=== PATIENT | female | born 1940 | race Caucasian/White ===

== ENCOUNTER 2020-06-26 09:11 | Outpatient (REF) | payer MEDICARE, SELFPAY ==
[2020-06-26 09:50] LABS: MANUAL DIFF FLAG NO
[2020-06-26 10:01] LABS: Basophils Percent Auto 0.7 % (0-2); Eosinophils Absolute Auto 0.2 X10*3/uL (0.0-0.4); Eosinophils Percent Auto 4.2 % (0-4); Hematocrit 36.9 % (37-47); Hemoglobin 11.8 g/dl (12.0-16.0); Imm Gran Abs Auto 0.01 X10*3/uL (0.00-0.03); Imm Gran Pct Auto 0.2 % (0.0-0.4); Lymphocytes Absolute Auto 0.8 X10*3/uL (1.2-4.9); Lymphocytes Percent Auto 18.8 % (20-40); Mean Corpuscular Hemoglobin 29.3 pg (27.0-33.0); Mean Corpuscular Volume 91.6 fL (80-98); Mean Platelet Volume 11.6 fL (9.4-12.3); Monocytes Absolute Auto 0.4 X10*3/uL (0.1-1.2); Monocytes Percent Auto 9.6 % (2-11); Neutrophils Absolute Auto 2.8 X10*3/uL (2.0-8.3); Neutrophils Percent Auto 66.5 % (45-73); Platelet Count 208 X10*3/uL (160-400); Red Blood Count 4.03 X10*6/uL (4.20-5.50); Red Cell Distribution Width 13.8 % (11.0-16.0); White Blood Count 4.3 X10*3/uL (4.8-10.8)
[2020-06-26 10:29] LABS: Alanine Aminotransferase 25 U/L (0-31); Alkaline Phosphatase 82 U/L (39-117); Anion Gap 10 (12-20); Aspartate Amino Transferase 30 U/L (5-31); Bilirubin Total 0.6 mg/dL (0.0-1.0); Blood Urea Nitrogen 20 mg/dL (9-16); Calcium 9.2 mg/dL (8.4-10.2); Carbon Dioxide 28 mmol/L (22-29); Chloride 103 mmol/L (96-108); Cholesterol 178 mg/dL; Estimated Glomerular Filt Rate > 60; Glucose Random 96 mg/dL (60-115); HDL Cholesterol 74 mg/dL; LDL Cholesterol Calculated 94 mg/dl; Potassium 4.4 mmol/l (3.3-5.1); Sodium 137 mmol/L (135-145); Total Protein 7.4 g/dL (6.5-8.0); Triglycerides 52 mg/dL
[2020-06-26 10:52] LABS: Ferritin 74 ng/mL (10-250)
[2020-06-26 11:09] LABS: Vitamin B12 1946 pg/mL (200-900)
== END 2020-06-26 09:12 | disposition home or self-care (01) ==
LOC: HO.LAB 09:11
PROVIDERS: PCP Internal Medicine; Visit Provider Internal Medicine
DX: E87.1 Hypo-osmolality and hyponatremia (principal); I10 Essential (primary) hypertension; M54.2 Cervicalgia
CPT/HCPCS: 36415; 80053; 80061; 82607; 82728; 85025

== ENCOUNTER 2020-08-19 10:00 | Outpatient (RCR) | payer MEDICARE, SELFPAY | END 2020-10-16 11:52 | disposition other institution (70) | LOC: HO.PT 10:00 | PROVIDERS: PCP Internal Medicine; Visit Provider Internal Medicine | DX: M25.512 Pain in left shoulder (principal) | CPT/HCPCS: 97110; 97140 ==

== ENCOUNTER → 2020-11-07 09:23 | Outpatient (BNV) | payer MEDICARE, SELFPAY | PROVIDERS: PCP Internal Medicine; Visit Provider Internal Medicine Medical Oncology | DX: D50.9 Iron deficiency anemia, unspecified (principal); Z86.711 Personal history of pulmonary embolism; Z79.82 Long term (current) use of aspirin | CPT/HCPCS: 99213; 99214 ==

== ENCOUNTER 2020-12-11 11:36 | Outpatient (REF) | payer MEDICARE, SELFPAY ==
[2020-12-11 12:34] LABS: D Dimer 1861 NG/ML
[2020-12-11 12:54] LABS: Alanine Aminotransferase 23 U/L (0-31); Alkaline Phosphatase 72 U/L (39-117); Anion Gap 14 (12-20); Aspartate Amino Transferase 33 U/L (5-31); Bilirubin Total 0.5 mg/dL (0.0-1.0); Blood Urea Nitrogen 19 mg/dL (9-16); Calcium 9.5 mg/dL (8.4-10.2); Carbon Dioxide 26 mmol/L (22-29); Chloride 101 mmol/L (96-108); Estimated Glomerular Filt Rate > 60; Glucose Random 95 mg/dL (60-115); Potassium 4.3 mmol/L (3.3-5.1); Sodium 137 mmol/L (135-145); Total Protein 7.2 g/dL (6.5-8.0)
== END 2020-12-11 11:37 | disposition home or self-care (01) ==
LOC: HO.LAB 11:36
PROVIDERS: Internal Medicine Medical Oncology; PCP Internal Medicine; Visit Provider Internal Medicine
DX: I26.99 Other pulmonary embolism without acute cor pulmonale (principal); E87.1 Hypo-osmolality and hyponatremia; I10 Essential (primary) hypertension
CPT/HCPCS: 36415; 80053; 85379

== ENCOUNTER 2021-01-27 14:31 | Outpatient (REF) | payer MEDICARE, SELFPAY ==
[2021-01-27 15:44] LABS: D Dimer 1565 NG/ML
== END 2021-01-27 14:32 | disposition home or self-care (01) ==
LOC: HO.LAB 14:31
PROVIDERS: PCP Internal Medicine; Visit Provider Internal Medicine Medical Oncology
DX: I26.99 Other pulmonary embolism without acute cor pulmonale (principal)
CPT/HCPCS: 36415; 85379

== ENCOUNTER 2021-04-30 11:04 | Outpatient (REF) | payer MEDICARE, SELFPAY ==
[2021-04-30 16:24] LABS: Anion Gap 12 (12-20); Blood Urea Nitrogen 20 mg/dL (9-16); Calcium 9.6 mg/dL (8.4-10.2); Carbon Dioxide 26 mmol/L (22-29); Chloride 105 mmol/L (96-108); Estimated Glomerular Filt Rate > 60; Phosphorus 3.3 mg/dL (2.7-4.5); Potassium 4.2 mmol/L (3.3-5.1); Sodium 139 mmol/L (135-145); Uric Acid 4.2 mg/dL (2.4-5.7)
[2021-04-30 16:45] LABS: TSH reflex Free T4 1.24 uIU/mL (0.32-4.0)
[2021-04-30 17:45] LABS: Renal w Reflex Lab Use Only Order verified
== END 2021-04-30 11:05 | disposition home or self-care (01) ==
LOC: HO.LAB 11:04
PROVIDERS: PCP Internal Medicine; Visit Provider Internal Medicine Nephrology
DX: I10 Essential (primary) hypertension (principal); E87.1 Hypo-osmolality and hyponatremia
CPT/HCPCS: 36415; 80051; 82310; 82533; 82565; 84100; 84443; 84520; 84550

== ENCOUNTER 2021-05-05 13:06 | Outpatient (REF) | payer MEDICARE, SELFPAY ==
[2021-05-05 14:27] LABS: Creatinine Urine 53.68 mg/dL
[2021-05-05 14:32] LABS: Uric Acid Urine Random 37.2 mg/dL
[2021-05-05 14:46] LABS: Osmolality Urine 596 mosm/kg (373-1093)
== END 2021-05-05 13:07 | disposition home or self-care (01) ==
LOC: HO.LNP 13:06
PROVIDERS: Visit Provider Internal Medicine Nephrology
DX: E87.1 Hypo-osmolality and hyponatremia (principal); I10 Essential (primary) hypertension; E27.40 Unspecified adrenocortical insufficiency; E78.5 Hyperlipidemia, unspecified; E03.9 Hypothyroidism, unspecified; N28.9 Disorder of kidney and ureter, unspecified
CPT/HCPCS: 83935; 84300; 84560

== ENCOUNTER 2021-06-24 10:40 | Outpatient (REF) | payer MEDICARE, SELFPAY ==
[2021-06-24 10:53] LABS: MANUAL DIFF FLAG NO
[2021-06-24 11:03] LABS: Basophils Percent Auto 0.7 % (0-2); Eosinophils Absolute Auto 0.2 X10*3/uL (0.0-0.4); Eosinophils Percent Auto 3.6 % (0-4); Hematocrit 37.3 % (37-47); Imm Gran Abs Auto 0.01 X10*3/uL (0.00-0.03); Imm Gran Pct Auto 0.2 % (0.0-0.4); Lymphocytes Absolute Auto 0.8 X10*3/uL (1.2-4.9); Lymphocytes Percent Auto 17.6 % (20-40); Mean Corpuscular HGB Conc 32.2 g/dl (31.0-35.0); Mean Corpuscular Hemoglobin 30.1 pg (27.0-33.0); Mean Corpuscular Volume 93.5 fL (80-98); Mean Platelet Volume 11.4 fL (9.4-12.3); Monocytes Absolute Auto 0.5 X10*3/uL (0.1-1.2); Monocytes Percent Auto 10.4 % (2-11); Neutrophils Percent Auto 67.5 % (45-73); Platelet Count 222 X10*3/uL (160-400); Red Blood Count 3.99 X10*6/uL (4.20-5.50); Red Cell Distribution Width 12.9 % (11.0-16.0); White Blood Count 4.5 X10*3/uL (4.8-10.8)
[2021-06-24 11:38] LABS: Alanine Aminotransferase 32 U/L (0-31); Alkaline Phosphatase 73 U/L (39-117); Anion Gap 11 (12-20); Aspartate Amino Transferase 35 U/L (5-31); Bilirubin Total 0.7 mg/dL (0.0-1.0); Blood Urea Nitrogen 16 mg/dL (9-16); Calcium 9.2 mg/dL (8.4-10.2); Carbon Dioxide 27 mmol/L (22-29); Chloride 102 mmol/L (96-108); Cholesterol 185 mg/dL; Estimated Glomerular Filt Rate > 60; Glucose Random 108 mg/dL (60-115); HDL Cholesterol 74 mg/dL; LDL Cholesterol Calculated 100 mg/dl; Potassium 4.8 mmol/L (3.3-5.1); Sodium 135 mmol/L (135-145); Total Protein 6.9 g/dL (6.5-8.0); Triglycerides 58 mg/dL
[2021-06-24 11:45] LABS: Thyroid Stimulating Hormone 1.33 uIU/mL (0.32-4.0)
== END 2021-06-24 10:41 | disposition home or self-care (01) ==
LOC: HO.LAB 10:40
PROVIDERS: PCP Internal Medicine; Visit Provider Internal Medicine
DX: I10 Essential (primary) hypertension (principal); Z20.89 Contact with and (suspected) exposure to other communicable diseases
CPT/HCPCS: 36415; 80053; 80061; 84443; 85025

== ENCOUNTER 2021-07-16 12:03 | Outpatient (REF) | payer MEDICARE, SELFPAY ==
[2021-07-16 13:28] LABS: Alanine Aminotransferase 32 U/L (0-31); Albumin Level 3.9 g/dL (3.5-5.0); Alkaline Phosphatase 76 U/L (39-117); Anion Gap 11 (12-20); Aspartate Amino Transferase 42 U/L (5-31); Bilirubin Total 0.7 mg/dL (0.0-1.0); Blood Urea Nitrogen 23 mg/dL (9-16); Calcium 9.4 mg/dL (8.4-10.2); Carbon Dioxide 27 mmol/L (22-29); Chloride 100 mmol/L (96-108); Estimated Glomerular Filt Rate > 60; Glucose Random 95 mg/dL (60-115); Potassium 4.5 mmol/L (3.3-5.1); Sodium 133 mmol/L (135-145); Total Protein 6.9 g/dL (6.5-8.0)
== END 2021-07-16 12:04 | disposition home or self-care (01) ==
LOC: HO.LAB 12:03
PROVIDERS: PCP Internal Medicine; Visit Provider Internal Medicine
DX: E87.1 Hypo-osmolality and hyponatremia (principal); I10 Essential (primary) hypertension; R79.1 Abnormal coagulation profile
CPT/HCPCS: 36415; 80053

== ENCOUNTER 2021-11-11 09:00 | Outpatient (RCR) | payer MEDICARE, SELFPAY | END 2021-11-14 08:36 | disposition home or self-care (01) | LOC: HO.PT 09:00 | PROVIDERS: PCP Internal Medicine; Visit Provider Internal Medicine | DX: M25.512 Pain in left shoulder (principal) | CPT/HCPCS: 97110; 97140; 97162; 97535 ==

== ENCOUNTER 2022-01-06 08:53 | Outpatient (REF) | payer MEDICARE, SELFPAY ==
[2022-01-06 10:50] LABS: Alanine Aminotransferase 25 U/L (0-31); Albumin Level 3.7 g/dL (3.5-5.0); Alkaline Phosphatase 74 U/L (39-117); Anion Gap 9 (12-20); Aspartate Amino Transferase 34 U/L (5-31); Bilirubin Total 0.7 mg/dL (0.0-1.0); Blood Urea Nitrogen 20 mg/dL (9-16); Calcium 10.1 mg/dL (8.4-10.2); Carbon Dioxide 29 mmol/L (22-29); Chloride 104 mmol/L (96-108); Estimated Glomerular Filt Rate > 60; Glucose Random 96 mg/dL (60-115); Potassium 4.8 mmol/L (3.3-5.1); Sodium 137 mmol/L (135-145); Total Protein 6.6 g/dL (6.5-8.0)
== END 2022-01-06 08:54 | disposition home or self-care (01) ==
LOC: HO.LAB 08:53
PROVIDERS: PCP Internal Medicine; Visit Provider Internal Medicine
DX: I10 Essential (primary) hypertension (principal); I83.899 Varicose veins of unspecified lower extremity with other complications; L03.116 Cellulitis of left lower limb
CPT/HCPCS: 36415; 80053

== ENCOUNTER 2022-07-06 07:58 | Outpatient (REF) | payer MEDICARE, SELFPAY ==
[2022-07-06 08:10] LABS: MANUAL DIFF FLAG NO
[2022-07-06 08:56] LABS: Basophils Percent Auto 0.7 % (0-2); Eosinophils Absolute Auto 0.1 X10*3/uL (0.0-0.4); Eosinophils Percent Auto 1.1 % (0-4); Imm Gran Abs Auto 0.03 X10*3/uL (0.00-0.03); Imm Gran Pct Auto 0.5 % (0.0-0.4); Lymphocytes Absolute Auto 0.8 X10*3/uL (1.2-4.9); Lymphocytes Percent Auto 14.4 % (20-40); Mean Corpuscular HGB Conc 32.4 g/dl (31.0-35.0); Mean Corpuscular Hemoglobin 29.6 pg (27.0-33.0); Mean Corpuscular Volume 91.1 fL (80.0-98.0); Mean Platelet Volume 10.4 fL (9.4-12.3); Monocytes Absolute Auto 0.6 X10*3/uL (0.1-1.2); Monocytes Percent Auto 10.4 % (2-11); Neutrophils Absolute Auto 4.1 x10*3/uL (2.0-8.3); Neutrophils Percent Auto 72.9 % (45-73); Platelet Count 242 X10*3/uL (160-400); Red Blood Count 4.06 X10*6/uL (4.20-5.50); Red Cell Distribution Width 14.3 % (11.0-16.0); White Blood Count 5.7 X10*3/uL (4.8-10.8)
[2022-07-06 09:00] LABS: D Dimer High Sensitivity 428 NG/ML
[2022-07-06 09:22] LABS: Alanine Aminotransferase 31 U/L (0-31); Alkaline Phosphatase 60 U/L (39-117); Anion Gap 15 (12-20); Aspartate Amino Transferase 37 U/L (5-31); Bilirubin Total 0.6 mg/dL (0.0-1.0); Blood Urea Nitrogen 25 mg/dL (9-16); Calcium 9.4 mg/dL (8.4-10.2); Carbon Dioxide 25 mmol/L (22-29); Chloride 99 mmol/L (96-108); Estimated Glomerular Filt Rate > 60; Glucose Random 104 mg/dL (60-115); Potassium 4.6 mmol/L (3.3-5.1); Sodium 134 mmol/L (135-145); Total Protein 6.8 g/dL (6.5-8.0)
== END 2022-07-06 07:59 | disposition home or self-care (01) ==
LOC: HO.LAB 07:58
PROVIDERS: Internal Medicine Medical Oncology; PCP Internal Medicine; Visit Provider Internal Medicine
DX: I26.99 Other pulmonary embolism without acute cor pulmonale (principal); I10 Essential (primary) hypertension; M81.8 Other osteoporosis without current pathological fracture
CPT/HCPCS: 36415; 80053; 85025; 85379

== ENCOUNTER 2022-09-19 13:40 | Outpatient (REF) | payer MEDICARE, SELFPAY ==
[2022-09-19 13:57] LABS: Appearance Urine Clear; Color Urine Dark Yellow; Glucose Urine UA Negative (Negative); Leukocyte Esterase Urine Large (3+) (Negative); Nitrite Urine Positive (Negative); Specific Gravity - Urine 1.015 (1.005-1.025); UMIC TRIGGER UACC YES; Urine Blood Trace (Negative); Urine Ketones Negative (Negative); Urine Protein Negative (Neg-Trace)
[2022-09-19 14:09] LABS: Bacteria Urine 2+ (None Seen); RBC Urine 0-2 /HPF (0-2); Squamous Epithelial Cell Urine 0-2 /HPF (0-2); UACC Culture Trigger YES; WBC Urine >50 /HPF (0-5)
== END 2022-09-19 13:41 | disposition home or self-care (01) ==
LOC: HO.LNP 13:40
PROVIDERS: Visit Provider Physician Assistant Medical
DX: R30.0 Dysuria (principal)
CPT/HCPCS: 81001; 87086; 87088; 87186

== ENCOUNTER 2022-11-02 08:01 | Outpatient (REF) | payer MEDICARE, SELFPAY ==
[2022-11-02 08:11] LABS: MANUAL DIFF FLAG NO
[2022-11-02 08:32] LABS: Basophils Percent Auto 0.6 % (0-2); Eosinophils Absolute Auto 0.1 X10*3/uL (0.0-0.4); Eosinophils Percent Auto 2.2 % (0-4); Hematocrit 40.2 % (37.0-47.0); Hemoglobin 12.8 g/dl (12.0-16.0); Imm Gran Abs Auto 0.02 X10*3/uL (0.00-0.03); Imm Gran Pct Auto 0.3 % (0.0-0.4); Lymphocytes Absolute Auto 0.9 X10*3/uL (1.2-4.9); Lymphocytes Percent Auto 14.7 % (20-40); Mean Corpuscular HGB Conc 31.8 g/dl (31.0-35.0); Mean Corpuscular Hemoglobin 28.9 pg (27.0-33.0); Mean Corpuscular Volume 90.7 fL (80.0-98.0); Mean Platelet Volume 11.5 fL (9.4-12.3); Monocytes Absolute Auto 0.7 X10*3/uL (0.1-1.2); Monocytes Percent Auto 10.3 % (2-11); Neutrophils Absolute Auto 4.6 x10*3/uL (2.0-8.3); Neutrophils Percent Auto 71.9 % (45-73); Platelet Count 225 X10*3/uL (160-400); Red Blood Count 4.43 X10*6/uL (4.20-5.50); Red Cell Distribution Width 14.3 % (11.0-16.0); White Blood Count 6.4 X10*3/uL (4.8-10.8)
[2022-11-02 09:12] LABS: Alanine Aminotransferase 26 U/L (0-31); Albumin Level 4.2 g/dL (3.5-5.0); Alkaline Phosphatase 80 U/L (39-117); Anion Gap 14 (12-20); Aspartate Amino Transferase 34 U/L (5-31); Bilirubin Total 0.9 mg/dL (0.0-1.0); Blood Urea Nitrogen 29 mg/dL (9-16); Calcium 10.2 mg/dL (8.4-10.2); Carbon Dioxide 26 mmol/L (22-29); Chloride 101 mmol/L (96-108); Cholesterol 212 mg/dL; Estimated Glomerular Filt Rate > 60; Glucose Random 109 mg/dL (60-115); HDL Cholesterol 82 mg/dL; LDL Cholesterol Calculated 116 mg/dl; Potassium 4.6 mmol/L (3.3-5.1); Sodium 136 mmol/L (135-145); Triglycerides 70 mg/dL
[2022-11-02 09:28] LABS: Vitamin D 25-OH Total 84.5 ng/mL (>30)
== END 2022-11-02 08:02 | disposition home or self-care (01) ==
LOC: HO.LAB 08:01
PROVIDERS: PCP Internal Medicine; Visit Provider Internal Medicine
DX: E87.1 Hypo-osmolality and hyponatremia (principal); I10 Essential (primary) hypertension; L97.919 Non-pressure chronic ulcer of unspecified part of right lower leg with unspecified severity; M81.8 Other osteoporosis without current pathological fracture
CPT/HCPCS: 36415; 80053; 80061; 82306; 85025; 87086; 87088; 87186

== ENCOUNTER 2022-11-02 11:48 | Outpatient (REF) | payer MEDICARE, SELFPAY | END 2022-11-02 11:49 | disposition home or self-care (01) | LOC: HO.10HDLNP 11:48 | PROVIDERS: Visit Provider Internal Medicine | DX: Z13.89 Encounter for screening for other disorder (principal) | CPT/HCPCS: 87086 ==

== ENCOUNTER 2022-12-16 12:38 | Outpatient (REF) | payer MEDICARE, SELFPAY | END 2022-12-16 12:39 | disposition home or self-care (01) | LOC: HO.10HDLNP 12:38 | PROVIDERS: Visit Provider Internal Medicine | DX: N30.00 Acute cystitis without hematuria (principal); R30.0 Dysuria | CPT/HCPCS: 87086 ==

== ENCOUNTER 2023-05-10 08:48 | Outpatient (REF) | payer MEDICARE, SELFPAY ==
[2023-05-10 10:08] LABS: Alanine Aminotransferase 21 U/L (0-31); Albumin Level 3.7 g/dL (3.5-5.0); Alkaline Phosphatase 78 U/L (39-117); Anion Gap 11 (12-20); Aspartate Amino Transferase 32 U/L (5-31); Bilirubin Total 0.6 mg/dL (0.0-1.0); Blood Urea Nitrogen 24 mg/dL (9-16); Calcium 9.6 mg/dL (8.4-10.2); Carbon Dioxide 27 mmol/L (22-29); Chloride 101 mmol/L (96-108); Estimated Glomerular Filt Rate > 60; Glucose Random 97 mg/dL (60-115); Potassium 4.2 mmol/L (3.3-5.1); Sodium 135 mmol/L (135-145); Total Protein 7.1 g/dL (6.5-8.0)
[2023-05-10 10:30] LABS: Vitamin D 25-OH Total 43.5 ng/mL (>30)
== END 2023-05-10 08:49 | disposition home or self-care (01) ==
LOC: HO.LAB 08:48
PROVIDERS: PCP Internal Medicine; Visit Provider Internal Medicine
DX: E67.3 Hypervitaminosis D (principal); E83.52 Hypercalcemia; I10 Essential (primary) hypertension
CPT/HCPCS: 36415; 80053; 82306

== ENCOUNTER 2023-07-28 08:33 | Outpatient (REF) | payer MEDICARE, SELFPAY ==
[2023-07-28 09:05] LABS: MANUAL DIFF FLAG NO
[2023-07-28 09:26] LABS: Basophils Percent Auto 0.6 % (0-2); Eosinophils Absolute Auto 0.1 X10*3/uL (0.0-0.4); Eosinophils Percent Auto 1.5 % (0-4); Hematocrit 35.4 % (37.0-47.0); Hemoglobin 11.3 g/dl (12.0-16.0); Imm Gran Abs Auto 0.02 X10*3/uL (0.00-0.03); Imm Gran Pct Auto 0.4 % (0.0-0.4); Lymphocytes Absolute Auto 0.8 X10*3/uL (1.2-4.9); Mean Corpuscular HGB Conc 31.9 g/dl (31.0-35.0); Mean Corpuscular Hemoglobin 29.5 pg (27.0-33.0); Mean Corpuscular Volume 92.4 fL (80.0-98.0); Mean Platelet Volume 11.5 fL (9.4-12.3); Monocytes Absolute Auto 0.5 X10*3/uL (0.1-1.2); Monocytes Percent Auto 10.8 % (2-11); Neutrophils Absolute Auto 3.4 x10*3/uL (2.0-8.3); Neutrophils Percent Auto 70.7 % (45-73); Platelet Count 192 X10*3/uL (160-400); Red Blood Count 3.83 X10*6/uL (4.20-5.50); Red Cell Distribution Width 15.3 % (11.0-16.0); White Blood Count 4.7 X10*3/uL (4.8-10.8)
[2023-07-28 09:51] LABS: Alanine Aminotransferase 28 U/L (0-31); Albumin Level 3.8 g/dL (3.5-5.0); Alkaline Phosphatase 70 U/L (39-117); Anion Gap 12 (12-20); Aspartate Amino Transferase 37 U/L (5-31); Bilirubin Total 0.8 mg/dL (0.0-1.0); Blood Urea Nitrogen 18 mg/dL (9-16); Calcium 9.5 mg/dL (8.4-10.2); Carbon Dioxide 26 mmol/L (22-29); Chloride 100 mmol/L (96-108); Cholesterol 178 mg/dL (<200); Estimated Glomerular Filt Rate > 60; Glucose Random 99 mg/dL (60-115); HDL Cholesterol 82 mg/dL (>40); LDL Cholesterol Calculated 87 mg/dL (<100); Potassium 4.5 mmol/L (3.3-5.1); Sodium 133 mmol/L (135-145); Total Protein 6.8 g/dL (6.5-8.0); Triglycerides 48 mg/dL (<150)
== END 2023-07-28 08:34 | disposition home or self-care (01) ==
LOC: HO.LAB 08:33
PROVIDERS: PCP Internal Medicine; Visit Provider Internal Medicine
DX: E87.1 Hypo-osmolality and hyponatremia (principal); I10 Essential (primary) hypertension; M81.8 Other osteoporosis without current pathological fracture
CPT/HCPCS: 36415; 80053; 80061; 85025

== ENCOUNTER 2023-08-17 11:47 | Outpatient (REF) | payer MEDICARE, SELFPAY ==
[2023-08-18 12:39] LABS: Influenza A PCR NEGATIVE (Negative); Influenza B PCR NEGATIVE (Negative); Resp Syncy Virus RNA Qual PCR NEGATIVE (Negative); SARS COV2 PCR INHOUSE POSITIVE (Negative)
== END 2023-08-17 11:48 | disposition home or self-care (01) ==
LOC: HO.HMGCLNP 11:47
PROVIDERS: Visit Provider Nurse Practitioner Primary Care
DX: Z11.52 Encounter for screening for COVID-19 (principal); J06.9 Acute upper respiratory infection, unspecified
CPT/HCPCS: 0241U

== ENCOUNTER 2023-08-17 13:59 | Outpatient (AMB) | payer MEDICARE, SELFPAY ==
--- NOTE | 2023-08-17 14:47 | MHC.OFFWIV ---
Intake Vital Signs 08/17/23 15:09 Height 5 ft BP 140/80 H Blood Pressure Location Rt brachial Position Sitting Pulse 73 Pulse Source Pulse Oximeter Temp 97.7 F Temp Source Temporal Artery Scan Pulse Oximetry (%) 97 Oxygen Delivery Method Room Air Intake Visit Reasons: EST/congestion/fever(lobby masked) Patient Tobacco Use Status: Never used Tobacco Allergies No Known Allergies Allergy (Verified 08/17/23 15:36) Medication List - Last Reconciled 08/17/23 by Cirilo Davis MD ferrous sulfate 325 mg PO DAILY losartan 50 mg PO DAILY metoprolol succinate ER 1 tab PO DAILY nitrofurantoin monohyd/m-cryst 100 mg (Macrobid) 100 mg PO Q12H 5 days PFSH Medical History (Updated 06/01/23 @ 11:56 by Zando) Anemia History of diverticulosis Surgical History Hx of hernia repair Hx of total knee replacement Family History Father Asthma Social History Household Members: Spouse Housing: House Are you a primary acute care assistant to a significant other at home: No Do you presently have visiting nurse or other home services: No Alcohol intake: never Patient Tobacco Use Status: Never used Tobacco service: No Current occupational status: retired Physical Exam Vital Signs: Last Vital Signs Temp 97.7 F 08/17/23 15:09 Pulse 73 08/17/23 15:09 BP 140/80 H 08/17/23 15:09 Pulse Ox 97 08/17/23 15:09 Oxygen Delivery Method Room Air 08/17/23 15:09 Assessment & Plan Assessment & Plan Orders: Orders SARS-CoV2/FLU/RSV 08/17/23 J06.9 - Acute upper respiratory infection, unspecified TIKI Sorenson Medications: New azithromycin take 500 mg today (day 1), then 250 mg for 4 days (days 2-5) PO 6 tabs 0RF Cirilo Davis MD Coding
[2023-08-17 15:09] VITALS: BP 140/80; PULSE 73; TEMP 36.5; O2SAT 97
--- NOTE | 2023-08-17 15:09 | MHC.OFFWIV ---
Intake Vital Signs 08/17/23 15:09 Height 5 ft BP 140/80 H Blood Pressure Location Rt brachial Position Sitting Pulse 73 Pulse Source Pulse Oximeter Temp 97.7 F Temp Source Temporal Artery Scan Pulse Oximetry (%) 97 Oxygen Delivery Method Room Air Intake Visit Reasons: EST/congestion/fever(lobby masked) Intake Note: pt is here today for congestion/fever started yesterday Patient Tobacco Use Status: Never used Tobacco Allergies No Known Allergies Allergy (Verified 08/17/23 15:36) Medication List - Last Reconciled 08/17/23 by Cirilo Davis MD ferrous sulfate 325 mg PO DAILY losartan 50 mg PO DAILY metoprolol succinate ER 1 tab PO DAILY nitrofurantoin monohyd/m-cryst 100 mg (Macrobid) 100 mg PO Q12H 5 days Do you need a note to return to daycare/school/sports/work: No HPI EST/congestion/fever(lobby masked) HPI Details Patient presents for a sick visit. Reporting symptoms of sinus congestion, sore throat and difficulty swallowing. Low-grade fever. No family member is sick. No recent travel. Patient reports symptoms of malaise and fatigue. [facility] Medical History (Updated 06/01/23 @ 11:56 by Comeks) Anemia History of diverticulosis Surgical History Hx of hernia repair Hx of total knee replacement Family History Father Asthma Social History Household Members: Spouse Housing: House Are you a primary campground caretaker to a significant other at home: No Do you presently have visiting nurse or other home services: No Alcohol intake: never Patient Tobacco Use Status: Never used Tobacco service: No Current occupational status: retired Physical Exam Vital Signs: Last Vital Signs Temp 97.7 F 08/17/23 15:09 Pulse 73 08/17/23 15:09 BP 140/80 H 08/17/23 15:09 Pulse Ox 97 08/17/23 15:09 Oxygen Delivery Method Room Air 08/17/23 15:09 Const General: cooperative and healthy appearing Nutritional Appearance: well nourished Orientation/consciousness: patient oriented x3 Limitations: no limitations HEENT Head: Yes normal to inspection Eyes General: appearance normal, both eyes and all related structures Neck Neck: Yes normal visual inspection Chest Chest palpation & inspection: normal palpation of entire chest wall Resp Effort & Inspection: normal respiratory effort Neuro General: patient oriented x3 Assessment & Plan Assessment & Plan (1) Upper respiratory tract infection: Code(s): J06.9 - Acute upper respiratory infection, unspecified Plan: Antibiotics ordered. Increase fluid intake. Tylenol for aches and pains. If symptoms worsen, follow-up here for a recheck. Orders: Orders SARS-CoV2/FLU/RSV Today J06.9 - Acute upper respiratory infection, unspecified Coding Level of Care Code Est Pt Level 3 (79582) Diagnoses Upper respiratory tract infection J06.9
== END 2023-08-17 15:46 | disposition home or self-care (01) ==
PROVIDERS: PCP Internal Medicine; Visit Provider Internal Medicine
DX: J06.9 Acute upper respiratory infection, unspecified (principal)
CPT/HCPCS: 99213

== ENCOUNTER 2023-08-23 12:59 | Emergency (ER) | payer MEDICARE, SELFPAY ==
--- NOTE | ~2023-08-23 | XR_ITS ---
EXAMINATION: XR CHEST CLINICAL INFORMATION: SOB. COMPARISON: Chest 10/21/2015 TECHNIQUE: 2 views of the chest were obtained. FINDINGS: The lungs are hyperinflated without acute pneumonic process. The heart size and pulmonary vascularity is normal. No gross bony abnormality seen. There is mild dextroscoliosis dorsolumbar spine. There is an old compression deformity T11 vertebra XR/XR chest 2V IMPRESSION: Hyperinflated lungs without acute process. Old T11 vertebral compression deformity
--- NOTE | 2023-08-23 13:15 | ED_ITS ---
HPI - General Adult General Chief complaint: General Medical Stated complaint: SOB,WEAK PER EMS Time Seen by Provider: 08/23/23 13:13 Source: patient and EMS Mode of arrival: EMS Limitations: no limitations History of Present Illness HPI narrative: 83 y/o F patient; PMH HTN, bilateral pulmonary embolism hx (completed Coumadin 2012), colostomy s/p reversal 2010, hx anemia; presents from home with report of shortness of breath and weakness. Patient had been seen at walk-in clinic on 08/17/2023 for sinus congestion, sore throat, difficulty swallowing, and low grade fever. She was treated with Azithromycin 250mg for unspecified upper respiratory tract infection. She was found to be COVID + after that visit on 08/17/2023. She was then called and recommended to discontinue the antibiotic after taking two doses. She has been using Robitussin and Tylenol as needed for her symptoms. Today she was walking up and down from her cellar multiple times doing housework. On one of her trips she developed shortness of breath, lightheadedness, and fatigue. She sat down in a chair feeling exhausted and her called 911 with concern for her condition. The patient's is also COVID +. She otherwise denies: chest pain, abdominal pain, nausea/vomiting, diarrhea, current fevers/chills, productive cough, current difficulty swallowing. Related Data Home Medications Medication Instructions Recorded Confirmed metoprolol succinate 100 mg 1 tab PO DAILY 11/07/20 08/17/23 tablet,extended release 24 hr losartan 25 mg tablet 50 mg PO DAILY 12/08/21 08/17/23 Previous Rx's Medication Instructions Recorded nitrofurantoin 100 mg PO Q12H 5 days #10 caps 09/19/22 monohydrate/macrocrystals 100 mg capsule (Macrobid) ferrous sulfate 325 mg (65 mg 325 mg PO DAILY #90 tabs 06/01/23 iron) tablet azithromycin 250 mg tablet See Rx Instructions PO .COMPLEX #6 08/17/23 tabs Allergies Allergy/AdvReac Type Severity Reaction Status Date / Time No Known Allergies Allergy Verified 08/17/23 15:36 Review of Systems 2 Review of Systems: Yes all other systems are reviewed and are negative PMFSH Past Medical History Attestation statement: The following information was validated with the patient. Source: old records reviewed Medical History Anemia History of diverticulosis Surgical History Hx of hernia repair Hx of total knee replacement Family History Family History Father Asthma Social History Social History Household Members: Spouse Housing: House Are you a primary manager critical care unit to a significant other at home: No Do you presently have visiting nurse or other home services: No Alcohol intake: never Patient Tobacco Use Status: Never used Tobacco Smoked in Last 30 Days: No Advance Directives: Yes Advance Directives Information Provided: No Advance Directives on File: No service: No Current occupational status: retired Physical Exam ED Vital Signs: Vital Signs - 24 hr 08/23/23 13:32 Temperature 99.2 F Pulse Rate 58 Respiratory Rate 16 Blood Pressure 171/72 H Pulse Oximetry 99 Oxygen Delivery Method Room Air BMI result Body Mass Index 23.4 Const General: cooperative and no acute distress Orientation/consciousness: patient oriented x3 HENMT Head: Yes normal to inspection and Yes atraumatic Ears: TM's normal bilaterally Mouth: oropharynx normal and moist mucous membranes Eyes General: appearance normal, both eyes and all related structures Neck Neck: Yes full ROM and Yes supple Chest Chest palpation & inspection: normal inspection of the chest Resp Effort & Inspection: normal respiratory effort, able to speak in complete sentences, no audible wheezes, no cough and no respiratory distress Cardio Rate: regular rate Rhythm: regular rhythm Peripheral pulses: Peripheral pulses 2+ throughout GI Inspection: Yes normal to inspection Palpation (GI): Soft to palpation, nontender, no guarding and not rigid Auscultation: normal bowel sounds Neuro General: patient oriented x3 Course Course Course Narrative: Patient is afebrile and hemodynamically stable. Well appearing, saturating 100% on RA. Will order EKG, CXR, and basic labs including VBG and troponin to assess for degree of dyspnea and demand. Reevaluation(s) Reevaluation #1: EKG: SB 56BPM without ischemic changes Pending diagnostic studies. Time: 15:17 Reevaluation #2: Labs reviewed. Troponin within appropriate limits. Mild leukopenia in the setting of known COVID. VBG with pH 7.4, CO2 43, CO3 27 - unremarkable. Remainder of labs unremarkable. Patient is ambulatory without difficulty, shortness of breath, or desaturation. CXR is unremarkable. Plan: Discharge to home with PCP follow up Return precautions given EXAMINATION: XR CHEST CLINICAL INFORMATION: SOB. COMPARISON: Chest 10/21/2015 TECHNIQUE: 2 views of the chest were obtained. FINDINGS: The lungs are hyperinflated without acute pneumonic process. The heart size and pulmonary vascularity is normal. No gross bony abnormality seen. There is mild dextroscoliosis dorsolumbar spine. There is an old compression deformity T11 vertebra XR/XR chest 2V IMPRESSION: Hyperinflated lungs without acute process. Old T11 vertebral compression deformity Medical Decision Making Lab Data 08/23/23 14:43 08/23/23 14:43 Labs: Lab Results 08/23/23 08/23/23 Range/Units 14:43 14:46 WBC 3.5 L (4.8-10.8) X10*3/uL RBC 3.98 L (4.20-5.50) X10*6/uL Hgb 11.7 L (12.0-16.0) g/dl Hct 35.7 L (37.0-47.0) % MCV 89.7 (80.0-98.0) fL MCH 29.4 (27.0-33.0) pg MCHC 32.8 (31.0-35.0) g/dl RDW 14.7 (11.0-16.0) % Plt Count 190 (160-400) X10*3/uL MPV 11.5 (9.4-12.3) fL Immature Gran % (Auto) 0.8 H (0.0-0.4) % Neut % (Auto) 73.4 H (45-73) % Lymph % (Auto) 15.3 L (20-40) % Real % (Auto) 10.2 (2-11) % Eos % (Auto) 0.0 (0-4) % Baso % (Auto) 0.3 (0-2) % Lymph # (Auto) 0.5 L (1.2-4.9) X10*3/uL Real # (Auto) 0.4 (0.1-1.2) X10*3/uL Eos # (Auto) 0.0 (0.0-0.4) X10*3/uL Baso # (Auto) 0.0 (0.0-0.2) X10*3/uL Abs Immat Gran (auto) 0.03 (0.00-0.03) X10*3/uL Absolute Neuts (auto) 2.6 (2.0-8.3) x10*3/uL Absolute Nucleated RBC 0.000 (0.0-0.012) X10*3/uL Nucleated RBC % (auto) 0.0 (0.0-0.2) /100WBC VBG pH 7.40 (7.32-7.43) VBG pCO2 43 mmHg VBG pO2 34 mmHg VBG HCO3 27 H (22-26) mmol/L VBG O2 Saturation 49.0 % VBG Base Excess 2.8 mmol/L Sodium 132 L (135-145) mmol/L Potassium 4.0 (3.3-5.1) mmol/L Chloride 102 (96-108) mmol/L Carbon Dioxide 25 (22-29) mmol/L Anion Gap 9 L (12-20) BUN 19 H (9-16) mg/dL Creatinine 0.70 (0.5-1.4) mg/dL Estim Creat Clear Calc 43.7 Estimated GFR > 60 Random Glucose 98 (60-115) mg/dL Calcium 9.1 (8.4-10.2) mg/dL Total Bilirubin 0.5 (0.0-1.0) mg/dL Direct Bilirubin 0.3 (0.0-0.5) mg/dL AST 34 H (5-31) U/L ALT 21 (0-31) U/L Alkaline Phosphatase 80 (39-117) U/L Troponin I High Sens 4.4 (<3.5-17.0) ng/L Total Protein 6.9 (6.5-8.0) g/dL Albumin 3.7 (3.5-5.0) g/dL Lipase 35 (8-78) U/L Discharge Plan Discharge Clinical Impression: COVID Patient Disposition: Home, Self-Care Instructions: Dyspnea (ED) Additional Instructions: As we discussed, you were seen today for shortness of breath, fatigue, and lightheadedness. Your EKG, CXR, and labs were reassuring. Recommend you follow up with your PCP within 2 - 3 days to discuss your recent ED visit. Return to the ED for any worsening difficulty breathing, chest pain, or passing out. Prescriptions: No Action metoprolol succinate 100 mg tablet extended release 24 hr 1 tab PO DAILY losartan 25 mg Tablet 50 mg PO DAILY ferrous sulfate 325 mg (65 mg iron) Tablet 325 mg PO DAILY Qty: 90 3RF nitrofurantoin monohyd/m-cryst [Macrobid] 100 mg capsule 100 mg PO Q12H 5 Days Qty: 10 0RF Rx Instructions: must administer with a meal/food azithromycin 250 mg tablet See Rx Instructions PO .COMPLEX Qty: 6 0RF Rx Instructions: take 500 mg today (day 1), then 250 mg for 4 days (days 2-5) PO Referrals: Renee Esposito MD [Primary Care Provider] - 3 days (Follow up for re- evaluation post-COVID )
--- NOTE | 2023-08-23 13:28 | ECG_ITS ---
Test Reason : WEAKNESS Blood Pressure : / mmHG Vent. Rate : 056 BPM Atrial Rate : 056 BPM P-R Int : 158 ms QRS Dur : 074 ms QT Int : 468 ms P-R-T Axes : 046 -06 047 degrees QTc Int : 451 ms Sinus bradycardia Otherwise normal ECG When compared with ECG of 08-DEC-2003 14:01, No significant change was found Referred By: Kadie Flores Electronically Signed By:TANYA LAZO
[2023-08-23 13:32] VITALS: BP 140/80; BP 171/72; PULSE 58; RESP 16; TEMP 37.3; O2SAT 99; BMI 23.4
--- NOTE | 2023-08-23 13:47 | PC.NURSE ---
PT STATES THAT SHE HAS CHEST CONGESTION WHICH STARTED LAST WEEK.
[2023-08-23 14:47] LABS: MANUAL DIFF FLAG NO
[2023-08-23 14:51] LABS: Venous Blood Gas Refer to POC result
[2023-08-23 14:51] LABS: VBG Base Excess 2.8 mmol/L; VBG HCO3 27 mmol/L (22-26); VBG pCO2 43 mmHg; VBG pO2 34 mmHg
[2023-08-23 14:54] LABS: Basophils Percent Auto 0.3 % (0-2); Hematocrit 35.7 % (37.0-47.0); Hemoglobin 11.7 g/dl (12.0-16.0); Imm Gran Abs Auto 0.03 X10*3/uL (0.00-0.03); Imm Gran Pct Auto 0.8 % (0.0-0.4); Lymphocytes Absolute Auto 0.5 X10*3/uL (1.2-4.9); Lymphocytes Percent Auto 15.3 % (20-40); Mean Corpuscular HGB Conc 32.8 g/dl (31.0-35.0); Mean Corpuscular Hemoglobin 29.4 pg (27.0-33.0); Mean Corpuscular Volume 89.7 fL (80.0-98.0); Mean Platelet Volume 11.5 fL (9.4-12.3); Monocytes Absolute Auto 0.4 X10*3/uL (0.1-1.2); Monocytes Percent Auto 10.2 % (2-11); Neutrophils Absolute Auto 2.6 x10*3/uL (2.0-8.3); Neutrophils Percent Auto 73.4 % (45-73); Platelet Count 190 X10*3/uL (160-400); Red Blood Count 3.98 X10*6/uL (4.20-5.50); Red Cell Distribution Width 14.7 % (11.0-16.0); White Blood Count 3.5 X10*3/uL (4.8-10.8)
[2023-08-23 15:05] LABS: Alanine Aminotransferase 21 U/L (0-31); Albumin Level 3.7 g/dL (3.5-5.0); Alkaline Phosphatase 80 U/L (39-117); Anion Gap 9 (12-20); Aspartate Amino Transferase 34 U/L (5-31); Bilirubin Direct 0.3 mg/dL (0.0-0.5); Bilirubin Total 0.5 mg/dL (0.0-1.0); Blood Urea Nitrogen 19 mg/dL (9-16); Calcium 9.1 mg/dL (8.4-10.2); Carbon Dioxide 25 mmol/L (22-29); Chloride 102 mmol/L (96-108); Creatinine Clr Calc Pharmacy 43.7; Estimated Glomerular Filt Rate > 60; Glucose Random 98 mg/dL (60-115); Lipase 35 U/L (8-78); Sodium 132 mmol/L (135-145); Total Protein 6.9 g/dL (6.5-8.0)
[2023-08-23 15:09] LABS: Troponin-I High Sensitivity 4.4 ng/L (<3.5-17.0)
[2023-08-23 15:37] LABS: Influenza A PCR NEGATIVE (Negative); Influenza B PCR NEGATIVE (Negative); Resp Syncy Virus RNA Qual PCR NEGATIVE (Negative); SARS COV2 PCR INHOUSE POSITIVE (Negative)
[2023-08-23 15:53] VITALS: O2SAT 97
[2023-08-23 16:04] VITALS: PULSE 83; O2SAT 97
== END 2023-08-23 16:19 | disposition home or self-care (01) ==
PROVIDERS: Emergency Provider Emergency Medicine; PCP Internal Medicine
DX: U07.1 COVID-19 (principal); R06.02 Shortness of breath; R00.1 Bradycardia, unspecified; R53.1 Weakness; Z86.711 Personal history of pulmonary embolism; Z79.01 Long term (current) use of anticoagulants
CPT/HCPCS: 0241U; 36415; 71046; 80048; 80076; 82803; 83690; 84484; 85025; 93005; 99283; 99284

== ENCOUNTER → 2023-08-23 13:28 | Outpatient (BNV) | payer MEDICARE, SELFPAY | PROVIDERS: Emergency Provider Emergency Medicine; PCP Internal Medicine; Visit Provider Internal Medicine | DX: R00.1 Bradycardia, unspecified (principal) | CPT/HCPCS: 93010 ==

== ENCOUNTER 2023-10-25 09:28 | Outpatient (REF) | payer MEDICARE, SELFPAY ==
[2023-10-25 09:51] LABS: MANUAL DIFF FLAG NO
[2023-10-25 10:15] LABS: Basophils Percent Auto 0.7 % (0-2); Eosinophils Absolute Auto 0.1 X10*3/uL (0.0-0.4); Eosinophils Percent Auto 2.4 % (0-4); Hematocrit 33.9 % (37.0-47.0); Hemoglobin 11.1 g/dl (12.0-16.0); Imm Gran Abs Auto 0.01 X10*3/uL (0.00-0.03); Imm Gran Pct Auto 0.2 % (0.0-0.4); Lymphocytes Absolute Auto 0.9 X10*3/uL (1.2-4.9); Lymphocytes Percent Auto 19.3 % (20-40); Mean Corpuscular HGB Conc 32.7 g/dl (31.0-35.0); Mean Corpuscular Hemoglobin 29.7 pg (27.0-33.0); Mean Corpuscular Volume 90.6 fL (80.0-98.0); Mean Platelet Volume 10.6 fL (9.4-12.3); Monocytes Absolute Auto 0.5 X10*3/uL (0.1-1.2); Monocytes Percent Auto 11.2 % (2-11); Neutrophils Percent Auto 66.2 % (45-73); Platelet Count 220 X10*3/uL (160-400); Red Blood Count 3.74 X10*6/uL (4.20-5.50); White Blood Count 4.6 X10*3/uL (4.8-10.8)
[2023-10-25 10:51] LABS: Alanine Aminotransferase 21 U/L (0-31); Albumin Level 3.7 g/dL (3.5-5.0); Alkaline Phosphatase 83 U/L (39-117); Anion Gap 12 (12-20); Aspartate Amino Transferase 30 U/L (5-31); Bilirubin Total 0.8 mg/dL (0.0-1.0); Blood Urea Nitrogen 24 mg/dL (9-16); Calcium 9.3 mg/dL (8.4-10.2); Carbon Dioxide 25 mmol/L (22-29); Chloride 103 mmol/L (96-108); Estimated Glomerular Filt Rate > 60; Glucose Random 94 mg/dL (60-115); Potassium 4.3 mmol/L (3.3-5.1); Sodium 136 mmol/L (135-145)
[2023-10-25 11:10] LABS: Thyroid Stimulating Hormone 1.89 uIU/mL (0.32-4.0)
== END 2023-10-25 09:29 | disposition home or self-care (01) ==
LOC: HO.LAB 09:28
PROVIDERS: PCP Internal Medicine; Visit Provider Internal Medicine
DX: E87.1 Hypo-osmolality and hyponatremia (principal); I10 Essential (primary) hypertension; Z13.31 Encounter for screening for depression
CPT/HCPCS: 36415; 80053; 84443; 85025

== ENCOUNTER 2024-02-22 09:08 | Outpatient (REF) | payer MEDICARE, SELFPAY ==
[2024-02-22 10:48] LABS: Alanine Aminotransferase 21 U/L (0-31); Alkaline Phosphatase 93 U/L (39-117); Anion Gap 13 (12-20); Aspartate Amino Transferase 33 U/L (5-31); Bilirubin Total 0.7 mg/dL (0.0-1.0); Blood Urea Nitrogen 32 mg/dL (9-16); Calcium 9.7 mg/dL (8.4-10.2); Carbon Dioxide 24 mmol/L (22-29); Chloride 102 mmol/L (96-108); Cholesterol 177 mg/dL (<200); Estimated Glomerular Filt Rate > 60; Glucose Random 104 mg/dL (60-115); HDL Cholesterol 74 mg/dL (>40); LDL Cholesterol Calculated 91 mg/dL (<100); Potassium 4.6 mmol/L (3.3-5.1); Sodium 134 mmol/L (135-145); Total Protein 7.3 g/dL (6.5-8.0); Triglycerides 61 mg/dL (<150)
[2024-02-22 11:04] LABS: Vitamin D 25-OH Total 60.1 ng/mL (>30)
== END 2024-02-22 09:09 | disposition home or self-care (01) ==
LOC: HO.LAB 09:08
PROVIDERS: PCP Internal Medicine; Visit Provider Internal Medicine
DX: E78.1 Pure hyperglyceridemia (principal); I10 Essential (primary) hypertension; J30.89 Other allergic rhinitis; M81.8 Other osteoporosis without current pathological fracture; Z68.23 Body mass index [BMI] 23.0-23.9, adult
CPT/HCPCS: 36415; 80053; 80061; 82306

== ENCOUNTER 2024-04-01 13:57 | Outpatient (AMB) | payer MEDICARE, SELFPAY ==
[2024-04-01 14:18] VITALS: BP 112/70; PULSE 66; TEMP 36.9; O2SAT 95; BMI 22.3
--- NOTE | 2024-04-01 14:18 | MHC.OFFWIV ---
Intake Vital Signs 04/01/24 14:18 Height 5 ft Weight 114 lb BMI 22.3 BP 112/70 Blood Pressure Location Lt brachial Position Sitting Pulse 66 Pulse Source Pulse Oximeter Temp 98.5 F Temp Source Oral Pulse Oximetry (%) 95 Oxygen Delivery Method Room Air Intake Visit Reasons: EP ?UTI Intake Note: Pt is here today c/o vaginal pressure and urgency upon urination Patient Tobacco Use Status: Never used Tobacco Allergies No Known Allergies Allergy (Verified 04/01/24 14:18) Medication List - Last Reconciled 04/01/24 by Sergio Vázquez MD calcium carb-magnesium carb 250-300 mg 1 tab PO TID losartan 50 mg PO DAILY metoprolol succinate ER 1 tab PO DAILY nitrofurantoin monohyd/m-cryst 100 mg (Macrobid) 100 mg PO BID 7 days HPI EP ?UTI HPI Details Symptoms of dysuria, frequency, urgency since yesterday. No fevers or chills. No abdominal pain. No back pain She regularly takes cranberry capsules No other complaint PFSH Medical History Anemia History of diverticulosis Surgical History Hx of hernia repair Hx of total knee replacement Family History Father Asthma Social History Household Members: Spouse Housing: House Are you a primary director of managed care to a significant other at home: No Do you presently have visiting nurse or other home services: No Alcohol intake: never Patient Tobacco Use Status: Never used Tobacco service: No Current occupational status: retired Review of Systems Const Details: See HPI Physical Exam Vital Signs: BMI result Body Mass Index 22.3 Const General: no acute distress and well developed Nutritional Appearance: well nourished Orientation/consciousness: patient oriented x3 HEENT Head: Yes normocephalic and Yes atraumatic Eyes General: appearance normal, both eyes and all related structures Pupils: Equal, round and reactive pupils present EOM: EOMs intact bilaterally Resp Effort & Inspection: normal respiratory effort Auscultation: clear to auscultation bilaterally Cardio Rate: regular rate Rhythm: regular rhythm Heart sounds: S1 normal heart sound present, S2 normal heart sound present, no gallops, no murmurs and no rubs Back/Spine/Pelvis Other: No CVA TTP Neuro General: patient oriented x3 and gait normal Cranial nerves: Yes Equal, round and reactive pupils present Psych Affect: normal affect Results AMB Urinalysis, Automated UA Leukoctes 500 Elpidio/uL Last Edit by Yesi Moise CMA on 04/01/24 14:39 UA Nitrite Positive Last Edit by Yesi Moise CMA on 04/01/24 14:39 UA Urobilinogen 8 mg/dL Last Edit by Yesi Moise CMA on 04/01/24 14:39 UA Protein 15 mg/dL Last Edit by Yesi Moise CMA on 04/01/24 14:39 UA pH 5.0 Last Edit by Yesi Moise CMA on 04/01/24 14:39 UA Blood 25 Ran/uL Last Edit by Yesi Moise CMA on 04/01/24 14:39 UA Specific Downing 1.015 Last Edit by Yesi Moise CMA on 04/01/24 14:39 UA Ketone Positive Last Edit by Yesi Moise CMA on 04/01/24 14:39 UA Bilirubin 4 mg/dL Last Edit by Yesi Moise CMA on 04/01/24 14:39 UA Glucose 250 mg/dL Last Edit by Yesi Moise CMA on 04/01/24 14:39 Assessment & Plan Assessment & Plan (1) UTI (urinary tract infection): Code(s): N39.0 - Urinary tract infection, site not specified Plan: Patient with dysuria and urine dip consistent with UTI. Start Macrobid Hydrate well She can continue cranberry capsules as she has been doing Will send urine for culture and sensitivites Call or return to office if not improving Orders: Orders AMB Urinalysis Automated Today Z13.9 - Encounter for screening, unspecified Urine Culture Today N39.0 - Urinary tract infection, site not specified Medications: New nitrofurantoin monohyd/m-cryst 100 mg (Macrobid) must administer with a meal/food 100 mg PO BID 7 days 14 caps 0RF Coding Level of Care Code Est Pt Level 3 (33137) Diagnoses UTI (urinary tract infection) N39.0
== END 2024-04-01 14:55 | disposition home or self-care (01) ==
PROVIDERS: PCP Internal Medicine; Visit Provider Family Medicine
DX: N39.0 Urinary tract infection, site not specified (principal)
CPT/HCPCS: 81003; 99213

== ENCOUNTER 2024-04-01 14:41 | Outpatient (REF) | payer MEDICARE, SELFPAY | END 2024-04-01 14:42 | disposition home or self-care (01) | LOC: HO.LAB 14:41 | PROVIDERS: Visit Provider Family Medicine | DX: N39.0 Urinary tract infection, site not specified (principal) | CPT/HCPCS: 87086 ==

== ENCOUNTER 2024-05-17 13:30 | Outpatient (AMB) | payer MEDICARE, SELFPAY ==
--- NOTE | 2024-05-17 13:46 | MHC.OFFWIV ---
Intake Vital Signs 05/17/24 13:48 Height 5 ft Weight 114 lb BMI 22.3 BP 118/60 Blood Pressure Location Rt brachial Position Sitting Pulse 75 Pulse Source Pulse Oximeter Pulse Oximetry (%) 98 Oxygen Delivery Method Room Air Intake Visit Reasons: EP- RT upper back pain Intake Note: Patient here for upper back pain. she states she was doing some yard work last wednesday and fell on her back and was not in pain the first couple days after and then yesterday the pain progressed. Patient Tobacco Use Status: Never used Tobacco Allergies No Known Allergies Allergy (Verified 05/17/24 13:52) Do you need a note to return to daycare/school/sports/work: No HPI EP- RT upper back pain HPI Details This note is constructed using voice recognition software. While every effort has been made to ensure accuracy, child care center assistant director errors may have been included. The patient is a 83 year old female who presents to the clinic today with right sided back/rib pain after a fall 5 days ago. The pain has not improved since onset, and she took 1 tylenol yesterday which did not resolve the pain. She applied a back brace today, which has not helped at all. She denies lightheadedness dizziness, shortness of breath, inability to move. She reports that she is quite active at home. [facility] Medical History Anemia History of diverticulosis Surgical History Hx of hernia repair Hx of total knee replacement Family History Father Asthma Social History Household Members: Spouse Housing: House Are you a primary palliative care physician to a significant other at home: No Do you presently have visiting nurse or other home services: No Alcohol intake: never Patient Tobacco Use Status: Never used Tobacco service: No Current occupational status: retired Review of Systems Const All systems reviewed & are unremarkable except as noted in HPI and below Physical Exam Vital Signs: Last Vital Signs Pulse 75 05/17/24 13:48 BP 118/60 05/17/24 13:48 Pulse Ox 98 05/17/24 13:48 Oxygen Delivery Method Room Air 05/17/24 13:48 BMI result Body Mass Index 22.3 Const General: cooperative, healthy appearing, comfortable, no acute distress and alert Orientation/consciousness: patient oriented x3 Limitations: no limitations Resp Effort & Inspection: normal respiratory effort and able to speak in complete sentences Auscultation: clear to auscultation bilaterally Cardio Jugular venous distension: no JVD Palpation: normal PMI Rate: regular rate Heart sounds: S1 normal heart sound present, S2 normal heart sound present, no click, no gallops, no murmurs and no rubs Back/Spine/Pelvis Other: Obvious kyphosis present. Tender to palpation along right posterior ribs. No palpable fractures. Skin General skin exam: no rashes or lesions noted, elasticity normal and turgor normal Neuro General: patient oriented x3 Extrem General: Yes normal to inspection, Yes full ROM, Yes capillary refill normal and Yes normal exam except as noted Psych Appearance: grossly normal Mental Status: mental status grossly normal Speech and movement: Normal speech and movement present Affect: normal affect Assessment & Plan Assessment & Plan (1) Rib pain on right side: Code(s): R07.81 - Pleurodynia Plan: X-ray ordered to evaluate for possible rib. Advised patient to continue with Tylenol as she is using at home. Advised trial of NSAIDs such as ibuprofen, ice, rest, topical lidocaine patches. Advised patient to follow up with worsening symptoms including dyspnea at rest. Xray reviewed, no obvious displaced fracture. Plan See above for full details and plan. Orders: Orders XR ribs RT min 3V w CXR1V Today R07.81 - Pleurodynia Coding Level of Care Code Est Pt Level 4 (85124) Diagnoses Rib pain on right side R07.81
[2024-05-17 13:48] VITALS: BP 118/60; PULSE 75; O2SAT 98; BMI 22.3
== END 2024-05-17 16:27 | disposition home or self-care (01) ==
PROVIDERS: PCP Internal Medicine; Visit Provider Registered Nurse
DX: R07.81 Pleurodynia (principal)
CPT/HCPCS: 99214

== ENCOUNTER 2024-05-17 14:23 | Outpatient (REF) | payer MEDICARE, SELFPAY ==
--- NOTE | ~2024-05-17 | XR_ITS ---
EXAMINATION: XR RIBS, RIGHT CLINICAL INFORMATION: Pleurodynia COMPARISON: 08/23/2023 TECHNIQUE: PA view of the chest and 3 views of the right ribs were obtained. FINDINGS: Lungs are clear. No consolidation, pneumothorax, or pleural effusion. Cardiac silhouette is enlarged. Pulmonary vasculature is unremarkable.. Osteoarthritis is present in the acromioclavicular and glenohumeral joints. Bones are osteopenic. Multilevel degenerative disc disease is present throughout the thoracic spine with right convex curvature. No approachable rib fractures. XR/XR ribs RT min 3V w CXR1V IMPRESSION: 1. No acute pulmonary findings. 2. Cardiomegaly. 3. No appreciable rib fractures. Electronically signed by: Owen Mckeon MD 05/17/2024 03:50 PM EDT
== END 2024-05-17 14:24 | disposition home or self-care (01) ==
LOC: HO.HMGCX 14:23
PROVIDERS: PCP Internal Medicine; Visit Provider Registered Nurse
DX: R07.81 Pleurodynia (principal)
CPT/HCPCS: 71101

== ENCOUNTER 2024-07-31 08:16 | Outpatient (REF) | payer MEDICARE, SELFPAY ==
[2024-07-31 08:43] LABS: MANUAL DIFF FLAG NO
[2024-07-31 09:16] LABS: Basophils Percent Auto 0.6 % (0-2); Eosinophils Absolute Auto 0.1 X10*3/uL (0.0-0.4); Eosinophils Percent Auto 2.1 % (0-4); Hematocrit 35.1 % (37.0-47.0); Hemoglobin 11.5 g/dl (12.0-16.0); Imm Gran Abs Auto 0.03 X10*3/uL (0.00-0.03); Imm Gran Pct Auto 0.6 % (0.0-0.4); Lymphocytes Absolute Auto 0.9 X10*3/uL (1.2-4.9); Mean Corpuscular HGB Conc 32.8 g/dl (31.0-35.0); Mean Corpuscular Hemoglobin 29.5 pg (27.0-33.0); Monocytes Absolute Auto 0.6 X10*3/uL (0.1-1.2); Monocytes Percent Auto 12.2 % (2-11); Neutrophils Absolute Auto 3.5 x10*3/uL (2.0-8.3); Neutrophils Percent Auto 67.5 % (45-73); Platelet Count 217 X10*3/uL (160-400); Red Cell Distribution Width 14.2 % (11.0-16.0); White Blood Count 5.2 X10*3/uL (4.8-10.8)
[2024-07-31 10:16] LABS: Alanine Aminotransferase 26 U/L (0-31); Albumin Level 3.9 g/dL (3.5-5.0); Alkaline Phosphatase 88 U/L (39-117); Anion Gap 11 (12-20); Aspartate Amino Transferase 31 U/L (5-31); Bilirubin Total 0.7 mg/dL (0.0-1.0); Blood Urea Nitrogen 21 mg/dL (9-16); Calcium 9.3 mg/dL (8.4-10.2); Carbon Dioxide 25 mmol/L (22-29); Chloride 103 mmol/L (96-108); Cholesterol 169 mg/dL (<200); Estimated Glomerular Filt Rate > 60; Glucose Random 98 mg/dL (60-115); HDL Cholesterol 71 mg/dL (>40); LDL Cholesterol Calculated 84 mg/dL (<100); Potassium 4.2 mmol/L (3.3-5.1); Sodium 135 mmol/L (135-145); Triglycerides 74 mg/dL (<150)
== END 2024-07-31 08:17 | disposition home or self-care (01) ==
LOC: HO.LAB 08:16
PROVIDERS: PCP Internal Medicine; Visit Provider Internal Medicine
DX: E87.1 Hypo-osmolality and hyponatremia (principal); I10 Essential (primary) hypertension; Z68.22 Body mass index [BMI] 22.0-22.9, adult; Z86.711 Personal history of pulmonary embolism
CPT/HCPCS: 36415; 80053; 80061; 85025

== ENCOUNTER 2025-01-29 09:03 | Outpatient (REF) | payer MEDICARE, SELFPAY ==
--- OUTSIDE RECORDS SUMMARY | 2025-01-29 09:12 | XMS_ITS | Encounter Summary ---
Author Organization [facility] Address [address] [facility] [address] [place] [address] Phone Care Team Providers Care Steam Shovel Operator Name Role Phone Renee Esposito MD Primary Care Provider Encounter Details Date Type Department Care Team (Late Contact Info) Description 06/02/2022 Telephone [facility] [address] [facility] [address] [place] [address] Cristo Frias MD [address] [address] Social History Tobacco Use Types Packs/Day Years Used Date Smoking Tobacco: Never Smokeless Tobacco: Never Alcohol Use Standard Drinks/Week Comments No 0 (1 standard drink = 0.6 oz pur e alcohol) Comments Unknown Sex and Gender Information Value Date Recorded Sex Assigned at Not on file Legal Sex Female 4:43 PM EST Gender Identity Not on file Sexual Orientation Not on file documented as of this encounter Miscellaneous Notes * Telephone Encounter - Radha Goodson - 06/02/2022 1:13 PM EDT [facility] called they are unable to complete the uric acid test due to a lab error. Pt will need to repeat labs if needed. documented in this encounter Plan of Treatment Upcoming Encounters Date Type Department Care Team (Late st Contact Info) Description 10/23/2025 10:00 AM EST Office Visit [facility] [address] [facility] [address] [place] [phone] Cristo Frias MD [address] [address] [place] [address] documented as of this encounter Visit Diagnoses Not on filedocumented in this encounter Care Teams Steam Shovel Operator Relationship Specialty Start Date End Date Renee Esposito MD [address] [facility] [address] [place], [place] PCP - General 09/30/20 documented as of this encounter
--- OUTSIDE RECORDS SUMMARY | 2025-01-29 09:12 | XMS_ITS | Clinical Summary ---
Author Organization [facility] Address [address] [place] [phone] Phone Care Team Providers Care Marine Biologist Name Role Phone Renee Esposito MD Primary Care Provider Allergies No known active allergies Medications Lecithin 1200 MG capsule Active Magnesium 200 MG tablet Take 1 tablet by mouth 2 (two) times a day 11/07/2019 Active Milk Thistle 200 MG capsule Take 1 capsule by mouth 1 (one) time each day Active Multiple Vitamins-Minera ls (Multivitamin Adults 50+) tablet Take 1 capsule by mouth 1 (one) time each day Active ascorbic acid (VITAMIN C) 500 MG tablet Take 1 tablet by mouth in the morning and 1 tablet in the evening. Active metoprolol succinate XL (TOPROL-XL) 100 MG 24 hr tablet Take 1 tablet by mouth 1 (one) time each day Active Mapap Arthritis Pain 650 MG 8 hr tablet Take 650 mg by mouth every 8 (eight) hours if needed 03/02/2021 Active amoxicillin (AMOXIL) 500 MG capsule Only when seeing Dentists 05/27/2021 Active Bogue-3 Fatty Acids (Bogue-3 Fish Oil) 1000 MG capsule Take 1 capsule by mouth 1 (one) time each day Active Cholecalciferol (Vitamin D3) 25 MCG (1000 UT) capsule Take 1 capsule by mouth 1 (one) time each day Active saccharomyces boulardii (FLORASTOR) 250 MG capsule Take 250 mg by mouth 1 (one) time each day Active losartan (COZAAR) 50 MG tablet Take 50 mg by mouth 1 (one) time each day 05/06/2022 Active Active Problems Problem Noted Date Diagnosed Date Peripheral arterial occlusive disease 10/10/2023 Chronic hyponatremia 05/07/2021 Hypertensive disorder 05/07/2021 Localized edema 05/07/2021 Chronic venous insufficiency 05/07/2021 H/O: pulmonary embolus 05/07/2021 History of partial resection of colon 05/07/2021 Encounters Date Type Department Care Team Description 12/01/2024 Documentation Only [facility] [address] [phone] Cristo Frias MD from Last 3 Months Family History Medical History Relation Comments Cancer Mother Diabetes Sibling Relation Status Comments Mother Sibling Social History Tobacco Use Types Packs/Day Years Used Date Smoking Tobacco: Never Smokeless Tobacco: Never Alcohol Use Standard Drinks/Week Comments No 0 (1 standard drink = 0.6 oz pur e alcohol) Comments Unknown Sex and Gender Information Value Date Recorded Sex Assigned at Not on file Legal Sex Female 4:43 PM EST Gender Identity Not on file Sexual Orientation Not on file Last Filed Vital Signs Vital Sign Reading Time Taken Comments Blood Pressure 169/80 10/10/2024 9:55 AM EST Pulse 72 10/10/2024 9:55 AM EST Temperature - - Respiratory Rate - - Oxygen Saturation 97% 10/10/2024 9:55 AM EST Inhaled Oxygen Concentration - - Weight 52.2 kg (115 lb) 10/10/2024 9:55 AM EST Height 152.4 cm (5') 10/10/2024 9:55 AM EST Body Mass Index 22.46 10/10/2024 9:55 AM EST Plan of Treatment Upcoming Encounters Date Type Department Care Team (Late st Contact Info) Description 10/23/2025 10:00 AM EST Office Visit [facility] [address] [phone] Cristo Frias MD [address] [phone] Health Maintenance Due Date Last Done Comments Pneumococcal Vaccine: 50+ Ye ars (1 of 2 - PCV) 1959 Influenza Vaccine (Season Ended) 2025 Hepatitis B Vaccine Aged Out No longe r eligible based on patient's age to complete this topic Insurance Medicare [facility] Medicare [facility] Care Teams Marine Biologist Relationship Specialty Start Date End Date Renee Esposito MD [facility] PCP - General 09/30/20
--- OUTSIDE RECORDS SUMMARY | 2025-01-29 09:12 | XMS_ITS ---
Author Organization [facility] Address [address] [place] [address] Care Team Providers Care Graduate Assistant Athletic Trainer Name Role Phone Renee Esposito Primary Care Provider Unavailab Isael Santana Unavailable [phone] Mikala Gordon [phone] Encounters Encounter Location Date Provider Diagnosis [address] [address] 01/22/2025 Mikala Gordon Plan Of Treatment Next Appt Details Provider Name:Isael Tello , 03/06/2025 10:30:00 AM, [address] [place] [address], [phone], Progress Notes * Nakia CARVAJAL BDOB: 0 (84 yo F)Acc No.[id number]:01/22/2025 Progress Note Patient:?Nakia CARVAJAL Provider:?Mikala Gordon DPM :1940???Age:84 Y???Sex:Female D ate:01/22/2025 Address:[address] [place], [place] [phone] Pcp:Renee Esposito Subjective: * Chief Complaints: * ??? * Medical History:? Objective: * Vitals:? Assessment: Plan: * Treatment: * Images: * The named appointment provid er may or may not be the originator of this progress note, and it is not deemed complete until electronically signed by the appointment provider. Sign off status: Pending * Provider:?Mikala Gordon DPM Date:?0 01/22/2025 Generated for Adalgisa heath/Chari/Cody on:?01/29/2025 09:12 AM EDT
--- OUTSIDE RECORDS SUMMARY | 2025-01-29 09:12 | XMS_ITS ---
Author Organization [facility] Address [address] [place] [address] Care Team Providers Care Architect Marine Name Role Phone Renee Esposito Primary Care Provider Unavailab Isael Santana Unavailable [phone] Isabella Brower [phone] Encounters Encounter Location Date Provider Diagnosis [address] [address] 11/07/2024 Isabella Brower Plan Of Treatment Next Appt Details Provider Name:Isael Tello , 03/06/2025 10:30:00 AM, [address] [place], [address], Progress Notes * Nakia CARVAJAL BDOB: [birth year] (84 yo F)Acc No.[id number]:11/07/2024 Progress Note Patient:?Nakia CARVAJAL Provider:?Isabella Brower DPM :1940???Age:84 Y???Sex:Female D ate:11/07/2024 Address:[address] [place], [place] [phone] Pcp:Renee Esposito Subjective: * Chief Complaints: * ??? * Medical History:? Objective: * Vitals:? Assessment: Plan: * Treatment: * Images: * The named appointment provid er may or may not be the originator of this progress note, and it is not deemed complete until electronically signed by the appointment provider. Sign off status: Pending * Provider:?Isabella Brower DPM Date:? Generated for Adalgisa heath/Chari/Cody on:?01/29/2025 09:11 AM EDT
--- OUTSIDE RECORDS SUMMARY | 2025-01-29 09:12 | XMS_ITS | Patient Health Record ---
Author Organization [facility] Address [address] [place] [address] Care Team Providers Care Group President Name Role Phone Renee Esposito Primary Care Provider Unavailab Isael Santana Unavailable [phone] Ji Thomas Unavailable [phone] LeonardaIsabella Unavailable [phone] Mikala Gordon Unavailable [phone] Allergies No Known Allergies Reason For Referral No Information Medications Medication SIG (Take, Route, Frequency, Duration) Notes Start Date End Date Status amLODIPine Besylate Not-Taking Zinc Active Voltaren 1 % as directed Externally Not-Taking Probiotic Active Losartan Potassium 50 MG 1 tablet Orally Once a day for 30 day(s) Active Milk Thistle Active Multivitamin C,D3 Active Magnesium calcium Active Metoprolol Succinate ER 100 MG as directed Orally Active Cranberry Active Immunizations Vaccine Route Administration Date Status Comme nts COVID-19 Moderna Vaccine Unknown 11/18/2020 Administered 10/2020 Unsure Dates Social History Tobacco Use: Social History Observation Description Date Details (start date - stop date) Never Smoker NA - NA Tobacco use other than smoking: Question Answer Notes Are you an other tobacco user? No Tobacco Control (Standard) Question Answer Notes Tobacco use: Nonsmoker Additional Findings: Tobacco non-user Current no nsmoker AUDIT-C (Standard) Question Answer Notes Did you have a drink containing alcohol in the p ast year? No Points 0 Interpretation Negative Problems Problem Type SNOMED Code ICD Code Onset Dates Problem Status W/U Status Risk Notes Problem Atherosclerosis of [place] arteries of the extremities ([id number]) Atherosclerosis of [place] artery of both lower extremities, with unspecified presence of clinical manifestation (I70.203) Active confirmed Q7(A), Q8(2B), Q9(1B,2 C) Vital Signs Blood pressure diastolic 74 mm Hg 12/01/2024 Height 5 ft in 12/01/2024 Blood pressure systolic 120 mm Hg 12/01/2024 Weight 118 lbs 12/01/2024 BMI 23.04 kg/m2 12/01/2024 Procedures Procedure Date Ordered Date Performed Result Body Sit e 46001-NAIFCSV NAIL, 6 OR MORE 12/01/2024 N/A 69708-XPON SKIN LESIONS, OVER 4 12/01/2024 N/A Encounters Encounter Location Date Provider Diagnosis [address] [address] 04/26/2024 Ji Thomas Pain in right foot M79.671 ; Metatarsalgia, right foot M77.41 ; Other hammer toe(s) (acquired), left foot M20.42 ; Other hammer toe(s) (acquired), right foot M20.41 ; Unspecified atherosclerosis of [place] arteries of extremities, bilateral legs I70.203 ; Sesamoiditis of right foot M25.871 ; Tinea unguium B35.1 ; Pain in right toe(s) M79.674 ; Pain in left toe(s) M79.675 and Ingrowing nail L60.[address] [address] 07/26/2024 Mikala Gordon Unspecified atherosclerosis of [place] arteries of extremities, bilateral legs I70.203 ; Tinea unguium B35.1 ; Pain in right toe(s) M79.674 and Pain in left toe(s) M79.[address] [address] 12/01/2024 Isael Tello Atherosclerosis of [place] artery of both lower extremities, with unspecified presence of clinical manifestation I70.203 ; Tinea unguium B35.1 ; Pain in right toe(s) M79.674 and Pain in left toe(s) M79.[address] [address] 11/03/2024 Mikala Gordon Assessments Encounter Date Diagnosis (ICD Code) Assessment Notes Treatment Notes Treatment Clinical Notes Section Notes 04/26/2024 Pain in right foot (ICD-10 - M79.671) 04/26/2024 Metatarsalgia, right foot (ICD-10 - M77.41) 07/26/2024 Tinea unguium (ICD-10 - B35.1) 07/26/2024 Unspecified atherosclerosis of [place] arteries of extremities, bilateral legs (ICD-10 - I70.203) 12/01/2024 Tinea unguium (ICD-10 - B35.1) 12/01/2024 Atherosclerosis of [place] artery of both lower extremities, with unspecified presence of clinical manifestation (ICD-10 - I70.203) Q7(A), Q8(2B), Q9(1B,2C) 12/01/2024 Pain in right toe(s) (ICD-10 - M79.674) 07/26/2024 Pain in right toe(s) (ICD-10 - M79.674) 04/26/2024 Other hammer toe(s) (acquired), left foot (ICD-10 - M20.42) 04/26/2024 Other hammer toe(s) (acquired), right foot (ICD-10 - M20.41) 07/26/2024 Pain in left toe(s) (ICD-10 - M79.675) 12/01/2024 Pain in left toe(s) (ICD-10 - M79.675) 04/26/2024 Unspecified atherosclerosis of [place] arteries of extremities, bilateral legs (ICD-10 - I70.203) 04/26/2024 Sesamoiditis of right foot (ICD-10 - M25.871) 04/26/2024 Tinea unguium (ICD-10 - B35.1) 04/26/2024 Pain in right toe(s) (ICD-10 - M79.674) 04/26/2024 Pain in left toe(s) (ICD-10 - M79.675) 04/26/2024 Ingrowing nail (ICD-10 - L60.0) Plan Of Treatment Pending Test Test Name Order Date X ray : Foot, right 3V 06/10/2022 24272-NILKJBR NAIL, 6 OR MORE 12/01/2024 50758-ZHDSMCA NAIL, 1-5 09/30/2015 51713-QHNL SKIN LESIONS, OVER 4 12/02/19 29673-ZDQY SKIN LESIONS, 2 TO 4 10/12/19 Next Appt Details Provider Name:Isael Tello , 03/06/2025 10:30:00 AM, [address] [place], [address], Insurance Providers Payer Name Payer Address Payer Phone Subscriber Number Group Number Insured Name Patient Relationship to Insured Coverage Start Date Coverage End Date Medicare [facility] [employer] [address] [place] [address] [id number] ParentNakia Self - patient is the insured [employer] [address] [place] [address] [phone] [id number] ParentNakia Self - patient is the insured Medical (General) History Medical History History ICD Code High blood pressure Joint implants/screws Transfusions Arthritis Diverticulosis Hiatal hernia Measles Mumps Chicken pox Cortisone Surgical History Surgery Date(Month/Year) right knee replacement 01/20/13 left knee replacement 07/25/13 diverticulosis 01/2011 hernia 2017 L wrist surgery 07/2022 Hospitalization History Reason Date(Month/Year) [place]- Fell fractured L wrist 07/2022
--- OUTSIDE RECORDS SUMMARY | 2025-01-29 09:12 | XMS_ITS | Data Portability ---
Author Organization [place] - [facility], [facility] Address [address] [place] [address] Care Team Providers Care Sheet Writer Name Role Phone ANAMARIA MONROE Primary Care Provider Assessment Encounter Date Assessment Date Assessment LastModified by Organization Details LastModified Time 02/28/2024 02/28/2024 I am seeing the patient today under the supervision of Dr. Marshall who was available but who did not see the patient. 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 The patient has done well with conservative management for their shoulder pain. Recently reports increasing discomfort over the past several weeks without injury. Pain is generalized about the shoulder and discomfort is noted at night. PAST MEDICAL/SURGICA L HISTORY Current medications per intake sheet. PHYSICAL FINDINGS The patient is well appearing, in no apparent distress, alert and oriented to person, place and time. Gait is symmetric. No significant swelling, warmth or erythema about either shoulder. There is mild tenderness to palpation about the shoulder. Active range of motion of the shoulder is restricted with moderate pain through mid range manipulations. 4/5 strength of the shoulder. Good stability of the shoulder. Peripheral, vascular, lymphatic examination, skin, neurologic coordination, reflexes, sensation are within normal limits. ASSESSMENT glenohumeral joint arthritis, left shoulder PLAN The patient has done well with conservative management in regards to the shoulder. Continued conservative management recommended. Moderating activities with the upper extremity recommended also. See procedure note. Follow up in 3 months. [email or web address] Not available 02/28/2024 11:29:16 07/24/2024 07/24/2024 I am seeing the patient today under the supervision of Dr. Marshall who was available but who did not see the patient. 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 The patient has done well with conservative management for their shoulder pain. Recently reports increasing discomfort over the past several weeks without injury. Pain is generalized about the shoulder and discomfort is noted at night. PAST MEDICAL/SURGICA L HISTORY Current medications per intake sheet. PHYSICAL FINDINGS The patient is well appearing, in no apparent distress, alert and oriented to person, place and time. Gait is symmetric. No significant swelling, warmth or erythema about either shoulder. There is mild tenderness to palpation about the shoulder. Active range of motion of the shoulder is restricted with moderate pain through mid range manipulations. 4/5 strength of the shoulder. Good stability of the shoulder. Peripheral, vascular, lymphatic examination, skin, neurologic coordination, reflexes, sensation are within normal limits. ASSESSMENT glenohumeral joint arthritis, left shoulder PLAN The patient has done well with conservative management in regards to the shoulder. Continued conservative management recommended. Moderating activities with the upper extremity recommended also. See procedure note. Follow up in 3 months. [email or web address] Not available 07/24/2024 11:50:58 10/03/2024 10/03/2024 I am seeing the patient today under the supervision of who was available but who did not see the patient. 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 The patient has done well with conservative management for their shoulder pain. Recently reports increasing discomfort over the past several weeks without injury. Pain is generalized about the shoulder and discomfort is noted at night. PAST MEDICAL/SURGICA L HISTORY Current medications per intake sheet. PHYSICAL FINDINGS The patient is well appearing, in no apparent distress, alert and oriented to person, place and time. Gait is symmetric. No significant swelling, warmth or erythema about either shoulder. There is mild tenderness to palpation about the shoulder. Active range of motion of the shoulder is restricted with moderate pain through mid range manipulations. 4/5 strength of the shoulder. Good stability of the shoulder. Peripheral, vascular, lymphatic examination, skin, neurologic coordination, reflexes, sensation are within normal limits. ASSESSMENT glenohumeral joint arthritis, left shoulder PLAN The patient has done well with conservative management in regards to the shoulder. Continued conservative management recommended. Moderating activities with the upper extremity recommended also. See procedure note. Follow up in 3 months. [email or web address] Not available 10/03/2024 07:59:29 01/15/2025 01/15/2025 I am seeing the patient today under the supervision of Dr. Chang who was available but who did not see the patient. 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 The patient has done well with conservative management for their shoulder pain. Recently reports increasing discomfort over the past several weeks without injury. Pain is generalized about the shoulder and discomfort is noted at night. PAST MEDICAL/SURGICA L HISTORY Current medications per intake sheet. PHYSICAL FINDINGS The patient is well appearing, in no apparent distress, alert and oriented to person, place and time. Gait is symmetric. No significant swelling, warmth or erythema about either shoulder. There is mild tenderness to palpation about the shoulder. Active range of motion of the shoulder is restricted with moderate pain through mid range manipulations. 4/5 strength of the shoulder. Good stability of the shoulder. Peripheral, vascular, lymphatic examination, skin, neurologic coordination, reflexes, sensation are within normal limits. ASSESSMENT glenohumeral joint arthritis, left shoulder PLAN The patient has done well with conservative management in regards to the shoulder. Continued conservative management recommended. Moderating activities with the upper extremity recommended also. See procedure note. Follow up in 3 months. [email or web address] Not available 01/15/2025 08:08:54 Plan of Treatment Reminders Order Date Submit Date Provider Last Modified By Organization Details Last Modified Time Details Appointments RECHECK 15 2024 11:15A M Uche Troy PA-C Not available Not available Not available Lab None recorded . Referral None recorded . Procedures None recorded . Surgeries None recorded . Imaging None recorded . Medication Orders None recorded . Patient TargetsNo targets recorded. Patient InstructionsNo instructions recorded. Reason for Referral None Reported. Results Created Date Observation Date Name Description Value Unit Range Abnormal Flag Note LastModifiedBy Organization Detail LastModifiedTime 05/19/20 24 08/08/2021 imagi ng/di phillos tic resul t No observ ation record ed. [email or web address] Not Available 04/22 23:02:19 Result Notes None recorded. Problems Name Problem SNOMED Code Status Onset Date Resolution Date Notes Provider Name and Address Organization Details Recorded Time Osteoarth ritis of joint of left shoulder region 690976998868 108 Active 2023 Kassie Blanchard PA-C [address], [place], [address] , [facility] 4 10:59:19 Knee joint prosthesi s present 821081642340 Active 2018 Problem Code: Z96.653; Problem Code Type: ICD-10; Status: 'A'; Not Available [facility] 4 10:56:23 Problem Notes None recorded. Procedures Surgical History Date Name Laterality Status Provider Name and Address Organization Details Recorded Time 5 Sports Shoulder completed Uche Troy PA-C [address], [place], [address], [facility] 01/15/2025 08:08:59 5 Sports Shoulder completed Uche Troy PA-C [address], [place], [address], [facility] 10/03/2024 07:59:17 4 Sports Shoulder completed Uche Troy PA-C [address], [place], [address], [facility] 07/24/2024 08:06:31 4 Sports Shoulder completed Kassie Blanchard PA-C [address], [place], [address], [facility] 05/08/2024 10:59:26 4 Large Joint Asp/Inj, L/R Kenalog 1cc completed Uche Troy PA-C [address], [place], [address], [facility] 02/28/2024 08:14:36 4 Large Joint Asp/Inj, L/R Kenalog 1cc completed Uche Troy PA-C [address], [place], [address], [facility] 12/20/2023 08:11:04 Imaging Results Imaging Date Name Status LastModified by Organiz ation Details LastModified Time 08/08/2021 imaging/diag nostic result completed [email or web address] Information not available 05/19/2024 23:02:19 Procedure Notes None recorded. Medical Equipment None Reported. Allergies No known drug allergies Medications Name Sig Start Date Stop Date Status Note LastModified by Organization Details LastModified Time losartan 50 mg tablet TAKE 1 TABLET BY MOUTH EVERY DAY active Not Available Not Available No t Available amoxicillin 500 mg capsule TAKE 4 CAPSULES BY MOUTH 1 HOUR PRIOR TO DENTIST PROCEDURE active Not Available Not Available No t Available triamcinolo ne acetonide 0.5 % topical cream APPLY TO RASH TWICE A DAY active Not Available Not Available No t Available azithromyci n 250 mg tablet TAKE 2 TABLETS BY MOUTH TODAY, THEN TAKE 1 TABLET DAILY FOR 4 DAYS DIRECTED 12/19 completed Not Available Not Available Not Available ketotifen 0.025 % (0.035 %) eye drops INSTILL 3 DROPS INTO BOTH EYES EVERY 8 HOURS active Not Available Not Available No t Available metoprolol succinate ER 100 mg tablet,exte nded release 24 hr TAKE 1 TABLET BY MOUTH EVERY DAY active Not Available Not Available No t Available acetaminoph en ER 650 mg tablet,exte nded release TAKE 1 TABLET BY MOUTH 3 TIMES A DAY NEEDED FOR PAIN active Not Available Not Available No t Available ferrous sulfate 325 mg (65 mg iron) tablet TAKE 1 TABLET BY MOUTH EVERY DAY 2023 active Not Available Not Available Not Avai lable pseudoephed rine-guaife nesin ER 80-700 mg tablet,exte nded release 1-2 TABS PO Q 4-6HRS PRN PAINDO NOT DRIVE WHILE ON THIS MEDICATIO N 12/19 completed Statu s: 'Curr ent'; Not Available Not Available Not Available fluticasone propionate 50 mcg/actuati on nasal spray,suspe nsion SPRAY 1 SPRAY INTO EACH NOSTRIL DAILY active Not Available Not Available No t Available nitrofurant oin monohydrate /macrocryst als 100 mg capsule TAKE 1 CAPSULE BY MOUTH TWICE A DAY WITH FOOD OR MEAL FOR 7 DAYS active Not Available Not Available No t Available Vitals Date Recorded Body height Provider Name an d Address Organization Details Last Updated DateTime 02/28/2024 152.4 cm nahun rios [place] - [facility] 02/28/2024 11:07:39 Date Recorded Body mass index (BMI) Body weight Provider Name and Address Organization Details Last Updated DateTime 02/28/2024 23 kg/m2 00492.9 g NICOLE Pitt [facility] [address], [address], [facility] 02/28/2024 11:14:59 Date Recorded Body height Body mass index (BMI) Body weight Provider Name and Address Organization Details Last Updated DateTime 05/08/2024 152.4 cm 23 kg/m2 36722.9 g Joanna Rios [facility] 05/08/2024 11:02:43 Date Recorded Body height Body mass index (BMI) Body weight Provider Name and Address Organization Details Last Updated DateTime 07/24/2024 152.4 cm 23 kg/m2 11203.9 g Genna Darío [facility] 07/24/2024 10:55:28 Date Recorded Body height Body mass index (BMI) Body weight Provider Name and Address Organization Details Last Updated DateTime 10/03/2024 152.4 cm 23 kg/m2 01594.9 g CHELSEA L'HEUREUX [facility] 10/03/2024 11:07:12 Date Recorded Body height Body mass index (BMI) Body weight Provider Name and Address Organization Details Last Updated DateTime 01/15/2025 152.4 cm 23 kg/m2 05508.9 g Anurag Callejas [facility] 01/15/2025 11:01:51 Social History Question Answer Notes LastModified by [employer] Details LastModified Time Tobacco Smoking Status Never Smoker ANANYAIA L'HEUREUX [facility] 12/20/2023 11:21:37 What Is Your Relationship Status? Information not available 12/20/2023 Sex: Unknown Functional Status Question Answer Note LastModified by [employer] Details LastModified Time Do you use any illicit or recreational drugs? No Information not available 12/20/2023 Do you or have you ever used any other forms of tobacco or nicotine? No Information not available 12/20/2023 What is your level of alcohol consumption? None Information not available 12/20/2023 Mental Status None recorded. Family History Nothing Reported. Medical History Condition Response Allergies/Hayfever Y Coronary Artery Disease N Anxiety/Depression N Emphysema N Thyroid Problems N COPD N Pacemaker N Kidney/Bladder Problems N Anemia N Vascular Disease N Gastrointestinal Disease N Heart Attack ([place]) N Diabetes N Autoimmune disease N Bleeding Disorder N Orthotics N Arthritis Y Seizures/Epilepsy N Blood Clot N AIDS/HIV N Congestive Heart Failure (CHF) N Acid Reflux (GERD) N Cancer N Stroke N Asthma Y Peripheral Vascular Disease N Sleep Apnea N Hepatitis N Heart Disease N Rheumatoid Arthritis N Arrhythmia N Pulmonary Embolism N Fibromyalgia N Hypertension Y Osteoporosis N Gynecological HistoryNo gynecological history recorded. Obstetrics History GPAL:G 0 P 0 0 0 0 Past Encounters Encounter ID Performer Location Encounter Start Date Encounter Closed Date Diagnosis/Indication Diagnosis SNOMED-CT Code Diagnosis ICD10 Code Diagnosis Note [id number] NICOLE Pitt [address] [place] [address] 12/20/2023 10:33:17 12/20/2023 13:00:38 Osteoarthritis of joint of left shoulder region 2738326680 67452 M19.653 [id number] Uche Troy PA-C [place] [address] [place] [address] 02/28/2024 10:59:21 04/04/2024 12:07:12 Osteoarthritis of joint of left shoulder region 9555262885 96146 M19.386 [id number] NICOLE Villagran [address] [place] [address] 05/08/2024 10:51:32 05/25/2024 07:39:10 Osteoarthritis of joint of left shoulder region 2246511864 33481 M19.512 [id number] NICOLE Pitt [address] [place] [address] 07/24/2024 10:47:23 08/22/2024 06:53:46 Osteoarthritis of joint of left shoulder region 0931113704 98974 M19.385 [id number] Uche Troy PA-C [facility] [address] [place] [address] 10/03/2024 10:41:51 10/13/2024 12:19:06 Osteoarthritis of joint of left shoulder region 7237205832 24113 M19.861 [id number] NICOLE Pitt [address] [place] [address] 01/15/2025 10:54:44 01/23/2025 10:32:20 Osteoarthritis of joint of left shoulder region 2783513391 81514 M19.012 Health Concerns Section Related Observation LastModified by Organization Detai ls LastModified Time None Recorded Concern Status LastModified by Organization Details LastModified Time None Recorded Advance Directives Directive None Recorded Payers Encounter Date Sequence Insurance Name Policy Number Policy De Leon Covered Member ID De Leon Member ID Guarantor Name 02/28/2024 1 [place] Nakia B Parent [id number] Nakia B Parent 02/28/2024 2 [place] [id number] Nakia B Parent [id number] Nakia B Parent 05/08/2024 1 [place] Nakia B Parent [id number] Nakia B Parent 05/08/2024 2 [place] [id number] Nakia B Parent [id number] Nakia B Parent 07/24/2024 1 [place] Nakia B Parent [id number] Nakia B Parent 07/24/2024 2 [place] [id number] Nakia B Parent [id number] Nakia B Parent 10/03/2024 1 [place] Nakia B Parent [id number] Nakia B Parent 10/03/2024 2 [place] [id number] Nakia B Parent [id number] Nakia B Parent 01/15/2025 1 [place] Nakia B Parent [id number] Nakia B Parent 01/15/2025 2 [place] [id number] Nakia Lopez Parent [id number] Nakia Lopez Parent Notes Date Note Type Note Provider Name and Address Organization Details Recorded Time 05/08/2024 text/html I am seeing the patient today under the supervision of {{Coreen Parkinson er* [employer]}} who was available but who did not see the patient. HPI: Patient comes to the office with known history of {{glenohumeral joint arthritis* subacromi al impingement}} of the {{left* Right Bilate ral}} shoulder. The patient has done well with conservative management for their shoulder pain with good clinical response to cortisone injections in the past. Reports recently increasing discomfort over the past several weeks with no new injury or trauma. Pain is generalized about the shoulder and discomfort is worst at night. PHYS EXAM:The patient is well appearing, in no apparent distress, alert and oriented to person, place and time. Gait is symmetric. No significant swelling, warmth or erythema about either shoulder.There is mild tenderness to palpation about the shoulder. Active range of motion of the shoulder is {{full restricted*}} with moderate pain through mid range manipulations. {{4/5 5/5 3/5#}} strength testing of the shoulder. Good stability of the shoulder.Peripheral, vascular, lymphatic examination, skin, neurologic coordination, reflexes, sensation are within normal limits. ASSESSMENT:Left shoulder - glenohumeral joint osteoarthritis PLAN:The patient has done well with conservative management in regards to the shoulder with good clinical response to injections in the past. Recommend continued conservative management with repeat injection(s) today. Moderating activities with the upper extremity recommended also. Follow up made in 10 weeks. See procedure notes for injection details. Speech recognition bilingual trainer software was used to create portions of this document. An attempt at proofreading has been made to minimize errors. Please call for corrections. Kassie Blanchard PA-C [address] [place] [address] [address], [place], [address], [facility] [place] [facility] 05/08/2024 11:07:03 OBGyn Episode No OBEpisode recorded.
--- OUTSIDE RECORDS SUMMARY | 2025-01-29 09:12 | XMS_ITS ---
Author Organization [facility] Vanessa ezra Samir Address [address] [place] [address] Care Team Providers Care Edge Inker Heels Name Role Phone Carolanngabrielle Renee Primary Care Provider Unavailab Isael Santana Unavailable [phone] Allergies No Known Allergies REASON FOR VISIT At Risk Footcare, Painful Nail(s) aggravated by shoes and causing difficulty standing/walking. Medications Medication SIG (Take, Route, Frequency, Duration) Notes Start Date End Date Status amLODIPine Besylate Not-Taking Zinc Active Voltaren 1 % as directed Externally Not-Taking Losartan Potassium 50 MG 1 tablet Orally Once a day for 30 day(s) Active Cranberry Active Probiotic Active Milk Thistle Active Multivitamin C,D3 Active Magnesium calcium Active Metoprolol Succinate ER 100 MG as directed Orally Active Social History Tobacco Use: Social History Observation [...] W/U Status Risk Notes Problem Atherosclerosis of [place] arteries of the extremities (514219480943056) Atherosclerosis of [place] artery of both lower extremities, with unspecified presence of clinical manifestation (I70.203) Active confirmed Q7(A), Q8(2B), Q9(1B,2 C) Vital Signs Height 5 ft in 12/01/2024 Weight 118 lbs 12/01/2024 BMI 23.04 kg/m2 12/01/2024 Blood pressure systolic 120 mm Hg 12/02/19 25 Blood pressure diastolic 74 mm Hg 025 Procedures Procedure Date Ordered Date Performed Result Body Sit e 13810-IVXFYYD NAIL, 6 OR MORE 12/01/2024 N/A 46508-NHKJ SKIN LESIONS, OVER 4 12/01/2024 N/A Encounters Encounter Location Date Provider Diagnosis [facility] [place] [address] [place] [address] 12/01/2024 Isaelalbert Guerraier Atherosclerosis of lone [place] artery of both lower extremities, with unspecified presence of clinical manifestation I70.203 ; Tinea unguium B35.1 ; Pain in right toe(s) M79.674 and Pain in left toe(s) M79.675 Assessments Encounter Date Diagnosis (ICD Code) Assessment Notes Treatment Notes Treatment Clinical Notes Section Notes 12/01/2024 Atherosclerosis of [place] artery of both lower extremities, with unspecified presence of clinical manifestation (ICD-10 - I70.203) Q7(A), Q8(2B), Q9(1B,2C) 12/01/2024 Tinea unguium (ICD-10 - B35.1) 12/01/2024 Pain in right toe(s) (ICD-10 - M79.674) 12/01/2024 Pain in left toe(s) (ICD-10 - M79.675) Plan Of Treatment Pending Test Test Name Order Date 33234-VQRKNIW NAIL, 6 OR MORE 12/01/2024 07530-HCYO SKIN LESIONS, OVER 4 12/02/19 25 Next Appt Details Follow Up: prn, Reason: Provider Name:Isael Tello , 03/06/2025 10:30:00 AM, [address] [place] [address], [id number], Procedure Notes * Category Sub-Category Detail Notes Debride Nail 6-10 Nail debridement Due to the cl inical pathology outlined in the exam findings, performance of this nail treatment is medically necessary as its management by an unskilled/untrained nonprofessional would put this patients foot and overall health at risk. Therefore, debridement to affected nail(s), as described in exam ( TA, T1, T2, T5, T6, T7, T9 ), was performed exclusively by the physician of record to reduce/remove overall nail length, girth, thickness, subungual debris, and necrotic tissue, by manual and/or electrical means through the use of a nail nipper and/or dremel-type graphite grinder, to a more viable healthy nail plate or bed tissue 6-10 nails in total. Silver nitrate was used for any petechial bleeding as necessary. Definitive antifungal treatment options, both pharmaceutical and surgical, have been reviewed and discussed with the patient. The patient solely prefers the use of intermittent/as needed professional debridement services for their nail condition and understands the need for additional periodic treatments to maintain effectiveness in symptomatic relief - 54893 Keratoma Treatment Parring or Cutting o f Benign Hyperkeratotic Lesion(s) (-57) More than 4 Lesions - Due to the at risk nature of the patients medical condition as documented in the exam findings, performance of this keratoderma treatment is medically necessary as its management by an unskilled/untrained nonprofessional would put this patients foot and overall health at risk. Therefore, the benign hyperkeratotic lesions, ( 7 ) in total, locations as stated and described in the exam ( Medial, DIPJ, T4, SUB MTH (s), 1, B/L ,Plantar, Heel(s), B/L ), were pared, and/or cut utilizing a sterile 15 blade, tissue nippers, and/or power dremel instrumentation by the physician of record - 94074, Q8 Progress Notes * Nakia CARVAJAL BDOB: 0 (84 yo F)Acc No.[id number]:12/01/2024 Progress Note Patient:?Nakia CARVAJAL Provider:?Isael Tello DPM :1940???Age:84 Y???Sex:Female D ate:12/01/2024 Address:[address] [place], [place] [id number] Pcp:Renee Esposito Subjective: * Chief Complaints: * ???At Risk FootcarePainful N ail(s) aggravated by shoes and causing difficulty standing/walking. * HPI: ???At Risk footcare:?Pt States Last PCP Visit:?Date?08/11/2024 * ROS:?General/Constitutional:?Nausea?denies.?Vomiting?denies.?Hunger Thirst?denies.?Loss appetite?denies.?Chills?denies.?Fatigue?denies.?Fever?denies.?Night Sweats?denies.?Unexplained weight loss?denies.?Unexplained weight gain?denies.?HEENTM:?Dentures?denies.?Dizziness?denies.?Glasses/contacts?denies.?Retinopathy?de nies.?Blurred/double vision?denies.?TMJ?denies.?Discharge/drainage?denies.?Implants?denies.?Sore throat?denies.?Dental implants?denies.?Hard of hearing ?denies.?Difficulty chewing/swallowing/speaking?denies.?Nose bleeds?denies.?Sore mouth?denies.?Respiratory:?On Oxygen?denies.?Pneumonia/pleurisy?denies.?Bronchitis?denies.?Emphysema?denies.?C oughing?denies.?Cough blood?denies.?Shortness of breath?denies.?Wheezing?denies.?Cardiovascular:?Pacemaker?denies.?MVP?denies.?WPW?denies.?CHF?denies.?Heart attack?denies.?Septal defect?denies.?Rapid beat?denies.?Chest pain ?denies.?Atrial Fib.?denies.?Murmur/Palpitations?denies.?Gastrointestinal:?Hemorrhoids?denies.?Stomach/Abdominal pain?denies.?Dark blood stool?denies.?Irritable bowel ?denies.?Constipation?denies.?Diarrhea?denies.?Hematology:?Swelling?denies.?Clots?denies.?Varicose Veins?admits.?Bruising?denies.?Bleeding problem?denies.?Genitourinary:?Blood urine?denies.?Frequent/Painfu/urination/bladder control?denies.?Kidney stones?denies.?Infection (UTI)?denies.?Nephropathy?denies.?sex trans dis (STD)?denies.?Prostate?denies.?Musculoskeletal:?Hammertoes?admits.?Bunions?denies.?Back Pain?denies.?Muscle Cramps/ Resting?denies.?Muscle cramps / walking?denies.?Generalized aches and pains?denies.?Weakness?denies.?Integ.:?Calvo?denies.?Scars?denies.?Corns/calluses?admits.?Ingrown nails?admits.?Painful nails?admits.?Open Sores?denies.?Rashes?denies.?Neurologic:?Difficulty sleeping?denies.?Brain disorder?denies.?Numbness?denies.?Balance trouble?denies.?Confusion?denies.?Fainting/blackouts?denies.?Tingling?denies.?Tr emors?denies.? * Medical History:? * Surgical History:?right knee replacement 01/20/13left knee replacement 07/25/13diverticulosis 01/2011hernia 2017L wrist surgery 07/2022 * Hospitalization/Major Diagno stic Procedure:?[facility] fractured L wrist 07/2022 * Family History:?Mother: dece ased.?Father: .? * Social History:?Tobacco Use:?Tobacco use other than smoking?Are you an other tobacco user??No ?Tobacco Control (Standard)?Tobacco use:?Nonsmoker ?Additional Findings: Tobacco non-user?Current nonsmoker ???Drugs/Alcohol:?Drugs?Have you used drugs other than those for medical reasons in the past 12 months??No ???Miscellaneous:?Caffeine: yes, frequency:, 1-2 cups per day. ?Children: yes, 4. ?Exercise: yes, Active , housework, walking. ?Marital status: . ?Occupation: Retired. ???Drug/Alcohol:?AUDIT-C (Standard)?Did you have a drink containing alcohol in the past year??No ?Points?0 ?Interpretation?Negative * Medications:?TakingCranberry Magnesium , Notes to Pharmacist: calciumMetoprolol Succinate ER 100 MG Tablet Extended Release 24 Hour as directed Orally Milk Thistle Multivitamin , Notes to Pharmacist: [id number] Losartan Potassium 50 MG Tablet 1 tablet Orally Once a day Zinc Taking Cranberry Taking Magnesium , Notes to Pharmacist: calciumTaking Metoprolol Succinate ER 100 MG Tablet Extended Release 24 Hour as directed Orally Taking Milk Thistle Taking Multivitamin , Notes to Pharmacist: [id number] Probiotic Taking Losartan Potassium 50 MG Tablet 1 tablet Orally Once a day Taking Zinc Not-Taking/PRNVoltaren 1 % Gel as directed Externally amLODIPine Besylate Medication List reviewed and reconciled with the patientNot-Taking/PRN Voltaren 1 % Gel as directed Externally Not-Taking/PRN amLODIPine Besylate Medication List reviewed and reconciled with the patient * Allergies:?N.K.D.A.yes[Aller gies Verified] Objective: * Vitals:?Ht: 5 ft, Wt:118, BM I: 23.04, Shoe size:8, BP:120/74mm Hg, Wt-k.52 kg. * Examination: ???Vascular: ?DP PULSES (B):? 1/4, B/L.?PT PULSES (B):? 0/4, B/L.?CAPILLARY FILL TIME:?delayed, all digits, B/L.?TROPHIC CONDITION-TEXTURE/ELASTICITY/TURGOR/HAIR GROWTH (B):?decreased, with sparse to absent hair growth, B/L.?TEMPERTURE GRADIENT (C):?warm to cool, proximal to distal, B/L.?PIGMENTATION:?normal, B/L.?EDEMA (C):? 1/4,non-pitting, without aching pain, Feet, Ankle(s), Leg(s), B/L.?CLAUDICATION (C):?denies, B/L.?REST PAIN:?denies, B/L.?VARICOSITIES:? present, moderate, nonpainful, B/L.?Nails: ?NAILS are:?Elongated, overgrown, dystrophic, lytic, greater than 3mm thick, discolored and friable with crumbly malodorous subungual debris, with pain on palpation, TA, T1, T2, T5, T6, T7, T9, all other nails not described with characteristics as possessing mycosis are elongated, overgrown, and dystrophic.?Dermatologic: ?SKIN FINDINGS:?Skin exam reveals Keratotic lesion(s) located at,?Medial,?DIPJ,?T4,?SUB MTH (s), 1, B/L ,Plantar, Heel(s), B/L.? Assessment: * Assessment: 1.?Tinea unguium - B35.1???2 .?Atherosclerosis of lone pine artery of both lower extremities, with unspecified presence of clinical manifestation - I70.203 (Primary)???Specify :Q8???Notes :Q7(A), Q8(2B), Q9(1B,2C)???3.?Pain in right toe(s) - M79.674???4.?Pain in left toe(s) - M79.675??? Plan: * Treatment: 2.?Tinea unguium?Procedure: 97315-VEZPEGE NAIL, 6 OR MORE * Procedures:?Debride Nail 6-10:?Nail debridement?Due to the clinical pathology outlined in the exam findings, performance of this nail treatment is medically necessary as its management by an unskilled/untrained nonprofessional would put this patients foot and overall health at risk. Therefore, debridement to affected nail(s), as described in exam (?TA,?T1,?T2,?T5,?T6,?T7,?T9?), was performed exclusively by the physician of record to reduce/remove overall nail length, girth, thickness, subungual debris, and necrotic tissue, by manual and/or electrical means through the use of a nail nipper and/or dremel-type graphite grinder, to a more viable healthy nail plate or bed tissue 6- 10 nails in total. Silver nitrate was used for any petechial bleeding as necessary. Definitive antifungal treatment options, both pharmaceutical and surgical, have been reviewed and discussed with the patient. The patient solely prefers the use of intermittent/as needed professional debridement services for their nail condition and understands the need for additional periodic treatments to maintain effectiveness in symptomatic relief - 21392.?Keratoma Treatment:?Parring or Cutting of Benign Hyperkeratotic Lesion(s)?(-57) More than 4 Lesions - Due to the at risk nature of the patients medical condition as documented in the exam findings, performance of this keratoderma treatment is medically necessary as its management by an unskilled/untrained nonprofessional would put this patients foot and overall health at risk. Therefore, the benign hyperkeratotic lesions, ( 7 ) in total, locations as stated and described in the exam (?Medial,?DIPJ,?T4,?SUB MTH (s), 1, B/L ,Plantar, Heel(s), B/L?), were pared, and/or cut utilizing a sterile 15 blade, tissue nippers, and/or power dremel instrumentation by the physician of record - 82486, Q8.? * Procedure Codes:?40491 DEBRI DE NAIL, 6 OR MORE, Modifiers: XS 25962 TRIM SKIN LESIONS, OVER 4, Modifiers: XS , Q8 * Follow Up:?prn * Images: * Sign off status: Completed true * Provider:?Isael Tello DPM Date:?2024 Generated for Adalgisa heath/Chari/Cody on:?01/29/2025 09:11 AM EDT History and Physical Notes * HPI (History of Present Illness) Category Sub-Category Detail Notes Category Not es At Risk footcare Pt States Last PCP Visit: Date: Examination Category Sub-Category Detail Notes Category Not es Dermatologic SKIN FINDINGS: Skin exam reveal s Keratotic lesion(s) located at, Medial, DIPJ, T4, SUB MTH (s), 1, B/L ,Plantar, Heel(s), B/L Vascular DP PULSES (B): 1/4, B/L PT PULSES (B): 0/4, B/L CAPILLARY FILL TIME: delayed, all digits , B/L TEMPERTURE GRADIENT (C): warm to cool, p roximal to distal, B/L TROPHIC CONDITION-TEXTURE/ELASTICITY/TURGOR/HAIR GROWTH (B): decreased, with sparse to absent hair gr owth, B/L EDEMA (C): 1/4,non-pitting, wit hout aching pain, Feet, Ankle(s), Leg(s), B/L VARICOSITIES: present, moderate, n onpainful, B/L CLAUDICATION (C): denies, B/L REST PAIN: denies, B/L PIGMENTATION: normal, B/L Nails NAILS are: Elongated, overg rown, dystrophic, lytic, greater than 3mm thick, discolored and friable with crumbly malodorous subungual debris, with pain on palpation, TA, T1, T2, T5, T6, T7, T9, all other nails not described with characteristics as possessing mycosis are elongated, overgrown, and dystrophic
[2025-01-29 09:14] LABS: MANUAL DIFF FLAG NO
[2025-01-29 09:19] LABS: Basophils Percent Auto 0.5 % (0-2); Eosinophils Absolute Auto 0.1 X10*3/uL (0.0-0.4); Hematocrit 37.1 % (37.0-47.0); Hemoglobin 12.1 g/dl (12.0-16.0); Imm Gran Abs Auto 0.02 X10*3/uL (0.00-0.03); Imm Gran Pct Auto 0.3 % (0.0-0.4); Lymphocytes Absolute Auto 0.9 X10*3/uL (1.2-4.9); Lymphocytes Percent Auto 14.4 % (20-40); Mean Corpuscular HGB Conc 32.6 g/dl (31.0-35.0); Mean Corpuscular Hemoglobin 29.5 pg (27.0-33.0); Mean Corpuscular Volume 90.5 fL (80.0-98.0); Mean Platelet Volume 11.2 fL (9.4-12.3); Monocytes Absolute Auto 0.6 X10*3/uL (0.1-1.2); Monocytes Percent Auto 9.5 % (2-11); Neutrophils Absolute Auto 4.3 x10*3/uL (2.0-8.3); Neutrophils Percent Auto 73.3 % (45-73); Platelet Count 166 X10*3/uL (160-400); White Blood Count 5.9 X10*3/uL (4.8-10.8)
[2025-01-29 10:18] LABS: Alanine Aminotransferase 22 U/L (0-31); Albumin Level 4.1 g/dL (3.5-5.0); Alkaline Phosphatase 99 U/L (39-117); Anion Gap 13 (12-20); Aspartate Amino Transferase 34 U/L (5-31); Bilirubin Total 0.8 mg/dL (0.0-1.0); Blood Urea Nitrogen 27 mg/dL (9-16); Calcium 9.6 mg/dL (8.4-10.2); Carbon Dioxide 26 mmol/L (22-29); Chloride 102 mmol/L (96-108); Estimated Glomerular Filt Rate > 60; Glucose Random 100 mg/dL (60-115); Potassium 4.5 mmol/L (3.3-5.1); Sodium 136 mmol/L (135-145); Total Protein 7.4 g/dL (6.5-8.0); Vitamin D 25-OH Total 43.2 ng/mL (>30)
== END 2025-01-29 09:04 | disposition home or self-care (01) ==
LOC: HO.LAB 09:03
PROVIDERS: PCP Internal Medicine; Visit Provider Internal Medicine
DX: E78.00 Pure hypercholesterolemia, unspecified (principal); I10 Essential (primary) hypertension; L82.1 Other seborrheic keratosis; M81.8 Other osteoporosis without current pathological fracture; Z86.711 Personal history of pulmonary embolism
CPT/HCPCS: 36415; 80053; 82306; 85025

== ENCOUNTER 2025-07-25 08:21 | Outpatient (REF) | payer MEDICARE, SELFPAY ==
--- OUTSIDE RECORDS SUMMARY | 2024-04-03 06:15 | XMS_ITS ---
Author Organization [facility] Address [address] [place] [address] Care Team Providers Care Steel Worker Name Role Phone Renee Esposito Primary Care Provider Unavailab Isael Santana Unavailable [phone] Ji Gross [phone] [place] Encounters Encounter Location Date Provider Diagnosis [address] [address] 04/03/2024 Ji Gross Plan Of Treatment Next Appt Details Provider Name:Isael Tello , 10/09/2025 10:30:00 AM, [address] [place], [address], Progress Notes * Nakia CARVAJAL BDOB: 0 (85 yo F)Acc No.[id number]:04/03/2024 Progress Note Patient: Nakia TIRANA Provider: Keke Thomas DPM :1940 A ge:83 Y S ex:Female Date:04/03/2024 Address:[address] [place] [address] [id number] Pcp:Renee Esposito Subjective: * Chief Complaints: * [address] Grove[address] * Medical History: Objective: * Vitals: Assessment: Plan: * Treatment: * Images: * The named appointment provid er may or may not be the originator of this progress note, and it is not deemed complete until electronically signed by the appointment provider. Sign off status: Pending * Provider: Keke Thomas DPM Date: 0 04/03/2024 Generated for Adalgisa heath/Chari/Cody on: 1 09/24/2024 08:32 AM EST
--- OUTSIDE RECORDS SUMMARY | 2024-10-30 06:00 | XMS_ITS ---
Author Organization [facility] Address [address] [place] [address] Care Team Providers Care Fixing Machine Operator Name Role Phone Renee Esposito Primary Care Provider Unavailab Isael Santana Unavailable [phone] Mikala Gordon Unavailable [phone] Grove Medications Medication SIG (Take, Route, Frequency, Duration) Notes Start Date End Date Status amLODIPine Besylate Not-Taking Voltaren 1 % as directed Externally Not-Taking Zinc Active Losartan Potassium 50 MG 1 tablet Orally Once a day; Duration: 30 day(s) Active Probiotic Active Milk Thistle Active Metoprolol Succinate ER 100 MG as directed Orally Active Magnesium calcium Active Cranberry Active Multivitamin C,D3 Active Encounters Encounter Location Date Provider Diagnosis [address] [address] 10/30/2024 Mikala Gordon Plan Of Treatment Next Appt Details Provider Name:Isael Tello , 10/09/2025 10:30:00 AM, [address] [place] [address], [phone], Progress Notes * Nakia CARVAJAL BDOB: 0 (85 yo F)Acc No.[id number]:10/30/2024 Progress Note Patient: Nakia TRIANA Provider: Carlyle Gordon DPM :1940 A ge:84 Y S ex:Female Date:10/30/2024 Address:[address] [place] [address] anDANIEL [id number] Pcp:Renee Esposito Subjective: * Chief Complaints: * [address] Grove. * Medical History: H igh blood pressure, Joint implants/screws, Transfusions, Arthritis, Diverticulosis, Hiatal hernia, Measles, Mumps, Chicken pox, Cortisone. * Medications: T aking Cranberry , Taking Magnesium , Notes to Pharmacist: calcium, Taking Metoprolol Succinate ER 100 MG Tablet Extended Release 24 Hour as directed Orally , Taking Milk Thistle , Taking Multivitamin , Notes to Pharmacist: C,D3, Taking Probiotic , Taking Losartan Potassium 50 MG Tablet 1 tablet Orally Once a day , Taking Zinc , Not-Taking/PRN Voltaren 1 % Gel as directed Externally , Not-Taking/PRN amLODIPine Besylate Objective: * Vitals: Assessment: Plan: * Treatment: * Images: * The named appointment provid er may or may not be the originator of this progress note, and it is not deemed complete until electronically signed by the appointment provider. Sign off status: Pending * Provider: Carlyle Gordon DPM Date: 0 10/30/2024 Generated for Adalgisa heath/Chari/Cody on: 09/24/2024 08:32 AM EST
--- OUTSIDE RECORDS SUMMARY | 2024-11-07 11:00 | XMS_ITS ---
Author Organization [facility] Address [address] [place] [address] Care Team Providers Care Bindery Supervisor Name Role Phone Renee Esposito Primary Care Provider Unavailab Isael Santana Unavailable [phone] Isabella Brower Unavailable [phone] Encounters Encounter Location Date Provider Diagnosis [address] [address] 11/07/2024 Isabella Brower Plan Of Treatment Next Appt Details Provider Name:Isael Tello , 10/09/2025 10:30:00 AM, [address] [place], [address], Progress Notes * Nakia CARVAJAL BDOB: [birth year] (85 yo F)Acc No.[id number]:11/07/2024 Progress Note Patient: Nakia TRIANA Provider: Willian Brower DPM :1940 A ge:84 Y S ex:Female Date:11/07/2024 Address:[address] [place], [place] [id number] Pcp:Renee Esposito Subjective: * Chief Complaints: * * Medical History: Objective: * Vitals: Assessment: Plan: * Treatment: * Images: * The named appointment provid er may or may not be the originator of this progress note, and it is not deemed complete until electronically signed by the appointment provider. Sign off status: Pending * Provider: Willian Brower DPM Date: 0 11/07/2024 Generated for Adalgisa heath/Chari/Cody on: 1 09/24/2024 08:32 AM EST
--- OUTSIDE RECORDS SUMMARY | 2025-01-22 08:00 | XMS_ITS ---
Author Organization [facility] Address [address] [place] [address] Care Team Providers Care Outside Salesman Name Role Phone Renee Esposito Primary Care Provider Unavailab Isael Santana Unavailable [phone] Mikala Gordon [phone] Encounters Encounter Location Date Provider Diagnosis [address] [address] 01/22/2025 Mikala Gordon Plan Of Treatment Next Appt Details Provider Name:Isael Tello , 10/09/2025 10:30:00 AM, [address] [place] [address], [phone], Progress Notes * Nakia CARVAJAL BDOB: [birth year] (85 yo F)Acc No.[id number]:01/22/2025 Progress Note Patient: Nakia TRIANA Provider: Carlyle Gordon DPM :1940 A ge:84 Y S ex:Female Date:01/22/2025 Address:[address] [place], [place] [id number] Pcp:Renee Esposito Subjective: * Chief Complaints: * * Medical History: Objective: * Vitals: Assessment: Plan: * Treatment: * Images: * The named appointment provid er may or may not be the originator of this progress note, and it is not deemed complete until electronically signed by the appointment provider. Sign off status: Pending * Provider: Carlyle Gordon DPM Date: 0 01/22/2025 Generated for Adalgisa heath/Chari/Cody on: 1 09/24/2024 08:32 AM EST
[2025-07-25 08:30] LABS: MANUAL DIFF FLAG NO
--- OUTSIDE RECORDS SUMMARY | 2025-07-25 08:32 | XMS_ITS | Patient Health Record ---
Author Organization [facility] Address [address] [place] [address] Care Team Providers Care Prevention Specialist Name Role Phone Renee Esposito Primary Care Provider Unavailab Andriy Love Unavailable [phone] See Berrios Unavailable Unavailable Reason For Referral No Information Plan Of Treatment No Information Insurance Providers Payer Name Payer Address Payer Phone Subscriber Number Group Number Insured Name Patient Relationship to Insured Coverage Start Date Coverage End Date MEDICARE OF [facility] [address] [place] [address] [id number] FRITZ CARVAJAL Self - patient is the insured
--- OUTSIDE RECORDS SUMMARY | 2025-07-25 08:32 | XMS_ITS | Clinical Summary ---
Author Organization [facility] Address [address] [place] [phone] Phone Care Team Providers Care Multi Spindle Operator Name Role Phone Renee Esposito MD [...] capsule Only when seeing Dentists 05/27/2021 Active [place]-3 Fatty Acids ([place]-3 Fish Oil) 1000 MG capsule Take 1 [...] History of partial resection of colon 05/07/2021 Family History Medical History Relation Comments Cancer [...] Office Visit [facility] [address] [phone] Cristo Frais MD [address] [address] Health Maintenance Due Date Last Done Comments Pneumococcal Vaccine: 50+ Ye ars (1 of 2 - PCV) 1959 Influenza Vaccine (#1) 2025 Hepatitis B Vaccine Aged Out No longe r eligible based on patient's age to complete this topic Insurance Medicare [facility] Medicare [facility] Care Teams Multi Spindle Operator Relationship Specialty Start Date End Date Renee Esposito MD [address] [place] [address] [facility] - General 09/30/20
--- OUTSIDE RECORDS SUMMARY | 2025-07-25 08:33 | XMS_ITS | Patient Health Record ---
Author Organization [facility] Maral ezra Dawson Address [address] [place] [address] Care Team Providers Care Bench Hand Machine Name Role Phone Renee Esposito Primary Care Provider Unavailab Isael Santana Unavailable [phone] Isabella Brower Unavailable [phone] GordonMikala lr Unavailable [phone] Allergies No Known Allergies Reason For Referral No Information Medications Medication SIG (Take, Route, Frequency, Duration) Notes Start Date End Date Status amLODIPine Besylate Not-Taking Voltaren 1 % as directed Externally Not-Taking Probiotic Active Multivitamin C,D3 Active Zinc Active Losartan Potassium 50 MG 1 tablet Orally Once a day; Duration: 30 day(s) Active Magnesium calcium Active Cranberry Active Milk Thistle Active Metoprolol Succinate ER 100 MG as directed Orally Active Immunizations Vaccine Route Administration Date Status Comme nts Influenza Unknown 03/06/2025 Refused COVID-19 Moderna Vaccine Unknown 11/18/2020 Administered 10/2020 [...] Problem Status W/U Status Risk Notes Problem Bilateral atherosclerosis of arteries of lower limbs (disorder) (44850223854530941 ) Atherosclerosis of [place] artery of both lower extremities, with unspecified presence of clinical manifestation (I70.203) Active confirmed Q7(A), Q8(2B), Q9(1B,2 C) Vital Signs Blood pressure diastolic 70 mm Hg 06/12/2025 Height 5 ft in 06/12/2025 Blood pressure systolic 128 mm Hg 06/12/2025 Weight 118 lbs 06/12/2025 BMI 23.04 kg/m2 06/12/2025 Procedures Procedure Date Ordered Date Performed Result Body Sit e 53446-TVWOGYC NAIL, 6 OR MORE 12/01/2024 N/A 93393-KEAG SKIN LESIONS, OVER 4 12/01/2024 N/A 44265-MXKZFIG NAIL, 6 OR MORE 03/06/2025 N/A 34296-FPIQ SKIN LESIONS, OVER 4 03/06/2025 N/A 82238-CNFBVPR NAIL, 6 OR MORE 06/12/2025 N/A 23465-OTUJ SKIN LESIONS, OVER 4 06/12/2025 N/A Encounters Encounter Location Date Provider Diagnosis [address] [address] 07/26/2024 Mikala Gordon Unspecified atherosclerosis of [place] arteries of extremities, bilateral legs I70.203 ; Tinea unguium B35.1 ; Pain in right toe(s) M79.674 and Pain in left toe(s) M79.[address] [address] 12/01/2024 Isael Omer Atherosclerosis of [place] artery of both lower extremities, with unspecified presence of clinical manifestation I70.203 ; Tinea unguium B35.1 ; Pain in right toe(s) M79.674 and Pain in left toe(s) M79.[address] [address] 03/06/2025 Isael Omer Atherosclerosis of [place] artery of both lower extremities, with unspecified presence of clinical manifestation I70.203 ; Tinea unguium B35.1 ; Pain in right toe(s) M79.674 and Pain in left toe(s) M79.[address] [address] 06/12/2025 Isael Omer Atherosclerosis of [place] artery of both lower extremities, with unspecified presence of clinical manifestation I70.203 ; Tinea unguium B35.1 ; Pain in right toe(s) M79.674 and Pain in left toe(s) M79.675 [facility] [address] [place] [address] 11/03/2024 Mikala Gordon [facility] [address] 03/06/2025 Isael Tello Assessments Encounter Date Diagnosis (ICD Code) Assessment Notes Treatment Notes Treatment Clinical Notes Section Notes 07/26/2024 Tinea unguium (ICD-10 - B35.1) 07/26/2024 Unspecified atherosclerosis of [place] arteries of extremities, bilateral legs (ICD-10 - I70.203) 12/01/2024 Tinea unguium (ICD-10 - B35.1) 12/01/2024 Atherosclerosis of [place] artery of both lower extremities, with unspecified presence of clinical manifestation (ICD-10 - I70.203) Q7(A), Q8(2B), Q9(1B,2C) 03/06/2025 Tinea unguium (ICD-10 - B35.1) 03/06/2025 Atherosclerosis of [place] artery of both lower extremities, with unspecified presence of clinical manifestation (ICD-10 - I70.203) Q7(A), Q8(2B), Q9(1B,2C) 06/12/2025 Tinea unguium (ICD-10 - B35.1) 06/12/2025 Atherosclerosis of [place] artery of both lower extremities, with unspecified presence of clinical manifestation (ICD-10 - I70.203) Q7(A), Q8(2B), Q9(1B,2C) 06/12/2025 Pain in right toe(s) (ICD-10 - M79.674) 12/01/2024 Pain in right toe(s) (ICD-10 - M79.674) 03/06/2025 Pain in right toe(s) (ICD-10 - M79.674) 07/26/2024 Pain in right toe(s) (ICD-10 - M79.674) 07/26/2024 Pain in left toe(s) (ICD-10 - M79.675) 12/01/2024 Pain in left toe(s) (ICD-10 - M79.675) 03/06/2025 Pain in left toe(s) (ICD-10 - M79.675) 06/12/2025 Pain in left toe(s) (ICD-10 - M79.675) Plan Of Treatment Pending Test Test Name Order Date X ray : Foot, right 3V 06/10/2022 91604-EIQEKHV NAIL, 6 OR MORE 12/01/2024 77456-TJSTTXS NAIL, 6 OR MORE 03/06/2025 21414-NEHUPOZ NAIL, 6 OR MORE 06/12/2025 01959-OTLMZJK NAIL, 1-5 09/30/2015 93128-IIPK SKIN LESIONS, OVER 4 06/12/20 25 35146-KMKT SKIN LESIONS, OVER 4 03/06/20 25 52396-ZVUM SKIN LESIONS, OVER 4 12/02/19 25 69033-DEZB SKIN LESIONS, 2 TO 4 10/12/19 23 Next Appt Details Provider Name:Isael Tello , 10/09/2025 10:30:00 AM, [address] [facility], [place], [address], Insurance Providers Payer Name Payer Address Payer Phone Subscriber Number Group Number Insured Name Patient Relationship to Insured Coverage Start Date Coverage End Date Medicare National [employer] [address] [facility] [place] [address] [id number] ParentNakia Self - patient is the insured [employer] [address] [place] [address] [id number] ParentNakia Self - patient is the insured [...]
--- OUTSIDE RECORDS SUMMARY | 2025-07-25 08:33 | XMS_ITS | Clinical Summary ---
Author Organization [facility] [place] [address] Care Team Providers Care Swatch Folder Name Role Phone Unavailable Primary Care Provider Unavailabl e Social History Tobacco Use Types Packs/Day Years Used Date Smoking Tobacco: Never Assessed Comments Unknown Sex and Gender Information Value Date Recorded Sex Assigned at Not on file Legal Sex Female 2:36 AM EST Gender Identity Not on file Sexual Orientation Not on file Plan of Treatment Health Maintenance Due Date Last Done Comments DTaP,Tdap,and Td Vaccines (1 - Tdap) 1959 Pneumococcal Vaccine: 50+ Ye ars (1 of 1 - PCV) 1990 Zoster Vaccines (1 of 2) 1990 RSV Immunization Adult Patie nts (1 - 1-dose 75+ series) 2015 Falls Risk Assessment 08/23/2022 Osteoporosis Screening (Bone Density Screening) 08/23/2022 Social Influencers of Health Screening 08/23/2022 Depression Screening 09/20/2024 COVID-19 Vaccine ( - 2023-2 5 season) 2025 Influenza Vaccine (#1) 2025 HIB Vaccines Aged Out No longer eligi ble based on patient's age to complete this topic HPV Vaccines Aged Out No longer eligi ble based on patient's age to complete this topic Hepatitis A Vaccines Aged Out No long er eligible based on patient's age to complete this topic Hepatitis B Vaccines Aged Out No long er eligible based on patient's age to complete this topic IPV Vaccines Aged Out No longer eligi ble based on patient's age to complete this topic MMR Vaccines Aged Out No longer eligi ble based on patient's age to complete this topic Meningococcal ACWY Vaccine Aged Out N o longer eligible based on patient's age to complete this topic Meningococcal B Vaccine Aged Out No l onger eligible based on patient's age to complete this topic RSV Immunization Patients Un chet 20 months Aged Out No longer eligible b ased on patient's age to complete this topic Varicella Vaccines Aged Out No longer eligible based on patient's age to complete this topic
--- OUTSIDE RECORDS SUMMARY | 2025-07-25 08:33 | XMS_ITS | Encounter Summary ---
Author Organization [facility] Address [address] [facility] [address] [place] [address] Phone Care Team Providers Care Communications Professor Name Role Phone Renee Esposito MD Primary Care Provider Encounter Details Date Type Department Care Team (Late Contact Info) Description 06/02/2022 Telephone [facility] [address] [facility] [address] [place] [address] Cristo Frias MD [address] [address] Social History Tobacco Use Types [...] Radha Goodson - 06/02/2022 1:13 PM EDT [facility] called they are unable to complete the uric acid test due to a lab error. Pt will need to repeat labs if needed. documented in this encounter Plan of Treatment Upcoming Encounters Date Type Department Care Team (Late st Contact Info) Description 10/23/2025 10:00 AM EST Office Visit [facility] [address] [place] [address] [place] [id number] Cristo Frias MD [address] [address] [place] [address] documented as of this encounter Visit Diagnoses Not on filedocumented in this encounter Care Teams Communications Professor Relationship Specialty Start Date End Date Renee Esposito MD [address] [facility] [address] [place], [place] PCP - General 09/30/20 documented as of this encounter
[2025-07-25 09:23] LABS: Hematocrit 35.2 % (37.0-47.0); Hemoglobin 10.9 g/dl (12.0-16.0); Imm Gran Abs Auto 0.01 X10*3/uL (0.00-0.03); Imm Gran Pct Auto 0.2 % (0.0-0.4); Lymphocytes Absolute Auto 1.0 X10*3/uL (1.2-4.9); Mean Corpuscular HGB Conc 31.0 g/dl (31.0-35.0); Mean Corpuscular Hemoglobin 29.2 pg (27.0-33.0); Mean Corpuscular Volume 94.4 fL (80.0-98.0); NRBC Abs Auto 0.000 X10*3/uL (0.0-0.012); NRBC Pct Auto 0.0 /100WBC (0.0-0.2); Platelet Count 247 X10*3/uL (160-400); Red Blood Count 3.73 X10*6/uL (4.20-5.50); White Blood Count 5.0 X10*3/uL (4.8-10.8)
[2025-07-25 10:05] LABS: Alanine Aminotransferase 24 U/L (0-31); Albumin Level 4.1 g/dL (3.5-5.0); Alkaline Phosphatase 88 U/L (39-117); Anion Gap 9 (12-20); Aspartate Amino Transferase 38 U/L (5-31); Blood Urea Nitrogen 29 mg/dL (9-16); Calcium 9.4 mg/dL (8.4-10.2); Carbon Dioxide 27 mmol/L (22-29); Chloride 106 mmol/L (96-108); Cholesterol 175 mg/dL (<200); Estimated Glomerular Filt Rate > 60; HDL Cholesterol 74 mg/dL (>40); Potassium 4.6 mmol/L (3.3-5.1); Sodium 137 mmol/L (135-145); Total Protein 7.3 g/dL (6.5-8.0); Triglycerides 66 mg/dL (<150)
== END 2025-07-25 08:22 | disposition home or self-care (01) ==
LOC: HO.LAB 08:21
PROVIDERS: PCP Internal Medicine; Visit Provider Internal Medicine
DX: E78.1 Pure hyperglyceridemia (principal); E78.00 Pure hypercholesterolemia, unspecified; I10 Essential (primary) hypertension; M81.8 Other osteoporosis without current pathological fracture
CPT/HCPCS: 36415; 80053; 80061; 82306; 85025